=== PATIENT | female | born 1945 | race Caucasian/White ===

== ENCOUNTER 2021-03-27 08:31 | Emergency (ER) | payer OTHER ==
--- OUTSIDE RECORDS SUMMARY | 2021-03-27 08:35 | XMS REPORT | Continuity of Care Document ---
:1945 Author Organization [facility] t Address [address] [place] [address] Care Team Providers Name Role Phone Gil Gar MD Primary Care Physician Blanca Yu DO Attending Clinician Kenrick LOMELI, C. Attending Clinician MD KENRICK C. Attending Clinician Unavailable Teja LOMELI, P. Attending Clinician Cong LOMELI M. Attending Clinician KENRICK Admitting Clinician Unavailable MD KENRICK C. Admitting Clinician Unavailable Payers Payer Name Policy Type Policy Effective Date Expiration Date Sour ce Number UHC MEDICAREUHC [id number] 2020 [place] TRS/HEALTH[employer] 00:00:00 Methodis t [id number] 2020-Present Problems Condition Condition Condition Status Onset Resolution Last Treating Co mments Source Name Details Category Date Date Treatment Clinician Date Cerebrovas Cerebrovas Disease Active H mirta cular cular 4-05 Methodi accident accident 00:00: st (CVA) (CVA) 00 Closed Closed Disease Active 2016-10 [place] fracture fracture 0-19 Method i of neck of of neck of 00:00: st right right 00 femur femur 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[facility] 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 Kumar mccray (current) (current) 2-11 Meth katelynn use of use of 00:00: st selective selective 00 estrogen estrogen receptor receptor modulators modulators (serms) (serms) Allergies, Adverse Reactions, Alerts Allergy Allergy Status Severity Reaction(s) Onset Inactive Treating Comm ents Source Name Type Date Date Clinician Latex Propensi Active Other (See Unknown Kumar ston ty to Comments) 01-13 Methodi adverse 00:00: st reaction 00 s to drug Sulfa Propensi Active [place] (Sulfona ty to 11-21 Methodi mide adverse 00:00: st Antibiot reaction 00 ics) s to drug Social History Social Habit Start Date Stop Date Quantity Comments Source Tobacco use and 2021-01-13 2021-01-13 Never used Tre Brock ethodist exposure 00:00:00 00:00:00 Alcohol intake 2021-01-13 2021-01-13 Current [facility] thodist 00:00:00 00:00:00 non-drinker of alcohol (finding) Sex Ass[birth year] Tre Brock ethodist 00:00:00 00:00:00 Smoking Status Start Date Stop Date Source Never smoker [place] Qianais t Medications Ordered Filled Start Stop Current Ordering Indication Dosage Frequency Signature Comments Components Source Medication Medication Date Date Medication? Clinician (SIG) Name Name aspirin 2021- Yes 81mg QD Take 1 Tre (ECOTRIN) 01-17 tablet (81 Met hodi 81 MG 00:00: 23:59 mg total) st enteric 00 :00 by mouth coated daily. tablet clopidogreL 2020- No 75mg QD Take 1 Kumar mccray (PLAVIX) 75 01-17 tablet (75 M ethodi mg tablet 00:00: 23:59 mg total) st 00 :00 by mouth daily for 30 days. atorvastati 2020- No 5mg QD Take 5 mg Tre n (LIPITOR) 01-16 by mouth Met hodi 10 mg 15:12: 00:[address] tablet 02 :00 HYDROcodone Yes 1{tbl} Q.5D Take 1 [place] -acetaminop 01-16 tablet by Met brooke hen (NORCO) 15:12: mouth 2 st 5-325 mg 00 (two) per tablet times a day as needed for moderate pain. citalopram Yes 10mg QD Take 10 mg [place] (CeleXA) 10 4-08 by mouth Meth katelynn MG tablet 15:12: daily. Pt st 00 take 1 1/2 tab OD montelukast Yes 10mg QD Take 10 mg [place] (SINGULAIR) 4-08 by mouth Meth katelynn 10 mg 15:12: daily. st tablet 00 pantoprazol Yes 40mg QD Take 40 mg [place] e 4-08 by mouth Methodi (PROTONIX) 15:12: daily. st 40 MG EC 00 tablet QUEtiapine Yes 25mg QD Take 25 mg [place] (SEROquel) 4-08 by mouth Metho di 25 MG 15:12: nightly. st tablet 00 ergocalcife Yes 29450A Q7D Take [place] 4-08 50,000 Methodi (VITAMIN 15:12: Units by st D2) 50,000 00 mouth once unit a week. capsule tolterodine Yes 4mg QD Take 4 mg [place] (DETROL) 2 4-08 by mouth Metho di MG tablet 15:12: daily. st 00 ramelteon Yes 8mg QD Take 1 [place] (ROZEREM) 8 4-08 tablet (8 Met hodi mg tablet 00:00: mg total) st 00 by mouth nightly as needed for sleep. traMADoL Yes acute pain 50mg Q6H Take 1 [place] (ULTRAM) 50 4-08 tablet (50 Me thodi mg tablet 00:00: mg total) st 00 by mouth every 6 (six) hours as needed for moderate pain .acute pain. enoxaparin Yes deep vein 40mg QD Inject 0.4 [place] (LOVENOX) 4-08 thrombosis mL (40 mg Methodi 40 mg/0.4 00:00: prevention total) st mL syringe 00 under the skin daily .deep vein thrombosis prevention . clonIDINE Yes .1mg Q8H Take 1 [place] (CATAPRES) 4-08 tablet Methodi 0.1 MG 00:00: (0.[address] tablet 00 total) by mouth every 8 (eight) hours as needed for high blood pressure (SBP more than 160). Immunizations Ordered Immunization Filled Immunization Date Status Commen ts Source Name Name PFIZER COVID-19 MRNA 2020-12-11 Completed [place] VACC[facility] 00:00:00 [facility] PFIZER COVID-19 MRNA 2020-11-20 Completed [place] VACCIN[place] 00:00:00 [facility] FLUCELVAX QUAD PF 2017-08-04 Completed [place] 00:00:00 [facility] Vital Signs Vital Name Observation Time Observation Value Comments Source Systolic blood 2021-01-16 11:00:00 158 mm[Hg] [place] [facility] pressure Diastolic blood 2021-01-16 11:00:00 93 mm[Hg] Marisa on [facility] pressure Heart rate 2021-01-16 11:00:00 55 /min Tre Feliciano Body temperature 2021-01-16 11:00:00 36 Janette [place] [facility] Respiratory rate 2021-01-16 11:00:00 18 /min Bryson Feliciano Oxygen saturation in 2021-01-16 11:00:00 95 /min Tre Feliciano Arterial blood by Pulse oximetry Body weight 2021-01-16 04:58:54 60.238 kg Tre Feliciano BMI 2021-01-16 04:58:54 24.29 kg/m2 Tre Feliciano Body height 2021-01-13 04:05:35 157.5 cm Tre Feliciano Procedures Procedure Date / Time Performing Clinician Source Performed BASIC METABOLIC PANEL 2021-01-15 05:46:00 Claudio Beach Latrondria Martha HC COMPLETE BLD COUNT 2021-01-15 05:46:00 Claudio Beach W/AUTO DIFF Latrondria Martha ESTIMATED GFR 2021-01-15 05:46:00 Tre [place] Meth odist Latronnaima Martha TROPONIN 2021-01-13 18:29:00 Zoey Yuodist Blanca LACTIC ACID LEVEL, SEPSIS 2021-01-13 18:28:00 Zoey Yu - NOW AND REPEAT 2X EVERY Blanca 3 HOURS HEMOGLOBIN A1C 2021-01-13 13:58:00 Lázaro Garcia ethodist TROPONIN 2021-01-13 13:58:00 Zoey Yu Nm thodist Blanca LIPID PANEL 2021-01-13 13:58:00 Lázaro Garcia M ethodist TTE COMPLETE, WO CONTRAST, 2021-01-13 12:45:00 Lázaro Garcia Tre Feliciano W DOPPLER ([id number]) US CAROTID DUPLEX 2021-01-13 10:02:47 Lázaro GarciaAdiel [place] [facility] BILATERAL MRA HEAD WO CONTRAST 2021-01-13 07:33:16 Radha, Lázaro aldrich [facility] MRI BRAIN WO CONTRAST 2021-01-13 07:32:49 Lázaro Garcia Noman mccray [facility] MRA NECK WO CONTRAST 2021-01-13 07:32:27 Radha, Lázaro Feliciano XR HAND 3+ VW LEFT 2021-01-13 04:24:[address] HEAD WO CONTRAST 2021-01-13 02:30:36 Zoey Yu n [facility] Blanca CT CERVICAL SPINE WO 2021-01-13 02:30:22 Zoey Yu on [facility]regation CONTRAST Blanca URINE CULTURE 2021-01-13 01:57:00 Zoey Yu Nm thodist Blanca URINALYSIS SCREEN AND 2021-01-13 01:57:00 Zoey Yu MICROSCOPY, WITH REFLEX TO Blanca CULTURE XR HIPS BILATERAL AP 2021-01-13 01:15:19 Zoey Yu on [facility] LATERAL W AP PELVIS Blanca XR CHEST 1 VW PORTABLE 2021-01-13 01:15:04 Zoey Yu Blanca COVID-19 QUALITATIVE PCR 2021-01-13 00:58:00 Zoey Yu Blanca BLOOD CULTURE, AEROBIC & 2021-01-13 00:57:00 Zoey Yu ANAEROBIC Blanca BLOOD CULTURE, AEROBIC & 2021-01-13 00:46:00 Zoey Yu ANAEROBIC Blanca HC COMPLETE BLD COUNT 2021-01-13 00:46:00 Zoey Yu W/AUTO DIFF Blanca PROTHROMBIN TIME WITH INR 2021-01-13 00:46:00 Zoey Yu Blanca PARTIAL THROMBOPLASTIN 2021-01-13 00:46:00 Zoey Yu TIME (PTT) Blanca COMPREHENSIVE METABOLIC 2021-01-13 00:46:00 Zoey Yu PANEL Blanca LACTIC ACID LEVEL, SEPSIS 2021-01-13 00:46:00 Zoey Yu - NOW AND REPEAT 2X EVERY Blanca 3 HOURS LIPASE LEVEL 2021-01-13 00:46:00 Zoey Yu Me thodist Blanca CREATINE KINASE, TOTAL 2021-01-13 00:46:00 Zoey Yu (CPK) Blanca TROPONIN 2021-01-13 00:46:00 Zoey Yu Me thodist Blanca B NATRIURETIC PEPTIDE 2021-01-13 00:46:00 Zoey Yu Blanca ALCOHOL LEVEL, BLOOD 2021-01-13 00:46:00 Zoey Yu on [facility] Blanca ESTIMATED GFR 2021-01-13 00:46:00 Zoey Yu Me thodist Blanca ECG 12-LEAD 2021-01-13 00:38:45 Zoey Yu Me thodist Blanca ECG ED PRELIMINARY 2021-01-13 00:27:02 Zoey Yu INTERPRETATION Blanca ME CRITICAL CARE, E/M 2021-01-13 00:27:02 Zoey Yu 30-74 MINUTES Blanca MAMMO SELF REQUESTING 2020-08-29 15:38:33 Gil Gar SCREENING BILATERAL W ZHOU Plan of Care Planned Activity Planned Date Details Comments Source Future Scheduled 2021-05-11 INFLUENZA VACCINE Claudio levy [facility] Test 00:00:00 [code = INFLUENZA VACCINE] Future Scheduled 1963 Hepatitis C [place] Met hodist Test 00:00:00 screening (procedure) [code = 068167438] Encounters Start End Encounter Admission Attending Care Care Encounter Source Date/Time Date/Time Type Type Clinicians Facility Department ID 2021-01-13 2021-01-16 Inpatient KENRICK, [facility] [id number] [place] 00:00:00 00:00:[address] LATRICE [address] 2020-12-11 2020-12-11 Outpatient TEJA, [facility] [id number] [place] 00:00:00 00:00:00 ARLYN [address] 2020-11-20 2020-11-20 Outpatient [facility] [id number] [place] 00:00:00 00:00:[address] 2020-08-29 2020-08-29 Outpatient CONG, [facility] [id number] [place] 00:00:00 00:00:00 GIL [address] Results Test Description Test Time Test Comments Results Result Comments Source ECG 12 lead 2021-01-14 14:55:47 Test Item Value Reference Range Interpretation Comme nts Ventricular rate (test code = 253) 80 Atrial rate (test code = 255) 80 ME interval (test code = 266) 206 QRSD interval (test code = 260) 96 QT interval (test code = 264) 404 QTC interval (test code = 265) 465 P axis 1 (test code = 267) 55 QRS axis 1 (test code = 268) -52 T wave axis (test code = 270) 52 EKG impression (test code = 273) Sinus rhythm with premature atrial complexes with aberrant conduction-Left anterior fascicular block-Nonspecific ST abnormality-Abnormal ECG-In automated comparison with ECG of 29-JUL-2017 00:08,-aberrant conduction is now present-Nonspecific T wave abnormality now evident in Lateral leads- Tre MethodsteffenTransthoracic Echocardiogram Complete, (w Contrast, Strain and 3D if needed)2021-01-14 09:34:59 Test Item Value Reference Range Interpretation Comments Ao Root Diameter (test 2.97 cm code = 2228917464) AoV Area, Vmax (test 1.53 cm2 code = 9166097107) AoV Area, VTI (test 1.82 cm2 code = 8995055363) AoV Mean PG (test code 11.73 mmHg = 9180957171) AoV Peak PG (test code 13.09 mmHg = 6090734502) AoV Vmax (test code = 2.56 m/s 4467227968) AoV VTI (test code = 0.35 m 9834385346) IVS,d (test code = 1.37 cm 9270814456) IVS/LVPW,2D (test code 1.33 = 3734834911) Left Atrium Dimension 2.91 cm Anterior (test code = 0885203017) LV,d (test code = 4.28 cm 4508756179) LV EF,2D (test code = 74.43 % 3739670760) LV,s (test code = 2.72 cm 9466050642) LVOT area (test code = 2.06 cm2 5177287412) LVOT Diam,S (test code 1.62 cm = 6877471279) LVOT Vmax (test code = 1.35 m/s 5837271530) LVOT VTI (test code = 0.25 m 3318343660) LVPWD,d (test code = 1.03 cm 8187974663) PV Pk Grad (test code = 6.59 mmHg 5449665496) PV VMAX (test code = 1.28 m/s 3147889865) RVOT Vmax (test code = 0.84 m/s 8111616900) TR Vpeak (test code = 2.51 mm/s 8830332736) MV E A ratio (test code 0.66 = 7277015705) TR pk grad (test code = 18.11 mmHg 8011345468) MR Vmax (test code = 2.11 m/s 7467288467) MR peak grad (test code 16.98 mmHg = 1640694760) E wave decelartion time 189.03 msec (test code = 4902328642) MV Peak A Koby (test 1.24 m/s code = 4335912328) MV valve area p 1/2 4.01 cm2 method (test code = 1387167717) MV Peak E Koby (test 0.82 m/s code = 5843343243) MV stenosis pressure 54.82 ms 1/2 time (test code = 9099851654) LVOT stroke volume 0.52 cm3 (test code = 1300504720) AV LVOT peak gradient 7.24 mmHg (test code = 2369765865) Ascending aorta (test 3.44 cm code = 4801598156) Ao Root Diameter (test 2.97 cm code = 3183603736) LV SYS VOL (test code = 27.40 ml 0049173571) LV ROD VOL (test code 82.09 ml = 6519759934) LA area s A4C (test 18.07 cm2 code = 2529849721) LV SV Teich 2D (test 54.69 ml code = 2914727963) LV Vol s Teich PSAX 27.40 ml (test code = 1592459129) RVOT pk grad (test code 2.84 mmHg = 9295320379) AoV Vmn (test code = 1.61 7416110863) LV FS Teich 2D (test 36.53 code = 7953945238) MV AE ratio (test code 1.51 = 9778617509) LV FS Cube 2D (test 36.53 code = 5014289436) LVOT Vmn (test code = 0.98 8424753164) Aov area Vmn (test code 1.60 cm2 = 1729819867) LVOT mean grad (test 4.22 mmHg code = 3299658613) MAX Pred HR (test code 142.01 = 4888984581) 85 of MPHR (test code = 120.71 8276433715) Calc MPHR (test code = 142.01 bpm 6727409216) LV SV Cube 2D (test 58.30 ml code = 0473482023) LV vol d cube 2D (test 78.33 ml code = 6377455445) LV vol s cube 2D (test 20.03 ml code = 6846265934) MV Decel slope (test 4.32 m/s2 code = 2679776168) Pred Exer Dur R1 (test 5.96 code = 9902356846) Pred METS R1 (test code 4.56 = 0839306240) LA Vol MOD A4C (test 41.75 ml code = 4130626634) Velocity Ratio (V1/V2) 0.53 m/s (test code = 4689) EF (test code = 66.62 % 9884587758) E/A ratio (test code = 0.66 6750403557) LVOT VTI (CM) (test 25.00 cm code = 7723212608) GABRIEL (test code = GABRIEL) Left ventricular systolic function is normal. Left Ventricular ejection fraction is 55 - 60%. Tre Alfaro carotid [id number] 10:05:33Hm Interface, Radiology Results 01/13/2021 10:08 AM CDTFormatting of this note might be di fferent from the original.Examination: US CAROTID DUPLEX BILATERALCLINICAL HISTORY: strokeTECHNIQUE:Examination includes full duplex Doppler scan (real- time B mode grayscale, Doppler spectral analysis, Doppler color flow imaging) of the common carotid, internal carotid, external carotid, and vertebral arteries. Velocity parameters are based upon studies using distal internal carotid artery diameter as a denominator for stenosis calculation.COMPARISON: None.IMPRESSION:1.Small volume of calcified plaque within the carotid arteries bilaterally. No hemodynamically significant stenosis within either internal carotid artery by NASCET criteria, with peak systolic velocities in the right and left internal carotid arteries measuring 50 cm/s and 43 cm/s, respectively. The peak systolic velocities within the right and left common carotid arteries measure 66 cm/s and 85 cm/s, respectively. Right ICA/CCA ratio 0.8; left 0.5. End diastolic velocities are normal.2.The right and left vertebral arteries are patent and demonstrate normal antegrade flow.[facility]-[id number] [facility] Brain Wo [id number] 07:49:41Hm Interface, Radiology Results 01/13/2021 7:52 AM CDT EXAMINATION: MRI BRAIN WO CONTRASTCLINICAL HISTORY: StrokeCOMPARISON: Head CT on 01/13/2021.TECHNIQUE: Standard noncontrast brain MRI.FINDINGS:The study is limited by patientmotion.There is acute-subacute right MCA territorial infarction most confluent involving right posterior temporal-lateral occipital lobar region and scattered areas involving right parietal cortex, subcortical and deep white matter including right posterior james radiata. No evidence of hemorrhagic transformation. Local mass effect with sulcal effacement and partial effacement of temporal horn of right lateral ventricle. No significant midline shift or brain herniation.Superimposed mild patchy areas of T2 prolongation in mostly bilateral frontoparietal periventricular, deep, and to lesser degree cody bcortical white matter are nonspecific but probably from chronic ischemic small vessel disease. No hydrocephalus, ventricular entrapment, or extra-axial fluid collection.Visualized paranasal sinuses and mastoid air cells are clear. Bilateral intraocular lens implants are noted. Bones and soft tissues are unremarkable.IMPRESSION:Acute-subacute right MCA territorial infarction involving mostly right posterior temporal-lateral occipital lobar region and to lesser degree right parietal lobar region. No evidence of hemorrhagic transformation.[id number] MethodistMRA Head Wo [id number] 07:48:08Hm Interface, Radiology Results 01/13/2021 7:51 AM CDT EXAMINATION: MRA HEAD WO CONTRASTCLINICAL HISTORY: StrokeCOMPARISON: None.IMPRESSION:3-D reconstructions were processed off-line.Motion artifact severely limits the evaluation.Likely occlusion of the dominant posterior branch of the right MCA just distal to the right MCA bifurcation.There is flow-related enhancement in bilateral internal carotid arteries, proximal M1 segments, A1 segments, intracranial vertebral arteries, basilar artery and P1 segments.Poor evaluation ofthe more distal intracranial vasculature. Consider further evaluation with CT angiogram.[facility]-WPHYRRSHouston MethodistMRA Neck Wo [id number] 07:43:12Hm Interface, Radiology Results 01/13/2021 7:46 AM CDT EXAMINATION: MRA NECK WO CONTRASTCLINICAL HISTORY: StrokeCOMPARISON: None.IMPRESSION:3-D reconstructions are processed off-line.No narrowing by NASCET criteria of the cervical internal carotid arteries.No hemodynamically significant narrowing of the distal common carotid arteries or visualized extracranial vertebral arteries.[facility]-WPHYRRSHouston [id number] (COVID-19) RNA [Presence] in Respiratory specimen by SIGIFREDO with probe [id number] 06:18:17 Test Item Value Reference Range Interpretation Comments SARS-CoV-2 (COVID-19) RNA Not detected Not-Detected [Presence] in Respiratory specimen by SIGIFREDO with probe detection (test code = 26846-9) XR Hand 3+ Vw [id number] 04:26:05Hm Interface, Radiology Results 01/13/2021 4:29 AM CDT EXAMINATION: XR HAND 3 VW LEFTCLINICAL HISTORY: fallCOMPARISON: None.IMPRESSION:Osteopenia of the visualized osseous structures.No acute fractures or dislocations.The visualized joint spaces are anatomic. Advanced degenerative change of the articulation of the first metacarpal and trapezium.No soft tissue abnormalities.[id number]irm[facility] MethodistCT Head Wo Contrast 2021-01-13 02:37:41Hm Interface, Radiology Results 01/13/2021 2:40 AM CDT EXAMINATION: CT HEAD WO CONTRASTCLINICAL HISTORY: AMS fallCOMPARISON: NoneTECHNIQUE: Noncontrast CT of the brain was performed from the skull base to the vertex. Both soft tissue and bone reconstruction algorithms are interpreted.CT imaging was performed with iterative reconstruction techniques and/or automated exposure control to reduce radiation dose.FINDINGS:There is anacute infarct in the right MCA territory involving the posterior division. The posterior right temporal and right parietal lobes are involved. There is mild local mass effect with some narrowing of theright lateral ventricle atrium. No hemorrhage is seen.No hyperdense vessel is seen.Mild lucency is noted in the cerebral white matter is consistent chronic small vessel ischemic change. Involutional changes of the brain are present.Intracranial atherosclerotic calcifications are present. No air-fluid level is seen in the visualized portions of the paranasal sinuses. Mastoid air cells are clear.IMPRESSION:Right MCA posterior division territory infarct involving the posterior right temporal lobe and right parietal lobe. There is mild local mass effect. No hemorrhage is seen.Findings were discussed with Dr. Yu at 2:35 AM. He verbalized understanding.[facility]-[id number] MethodistCT Cervical Spine Wo [id number] 02:33:33Hm Interface, Radiology Results 01/13/2021 2:36 AM CDT EXAMINATION: CT CERVICAL SPINE WO CONTRASTCLINICAL HISTORY: fallCOMPARISON: NoneTECHNIQUE: Axial noncontrast enhanced images of the cervical spine were obtained with coronal and sagittal reconstructed algorithms. CT imaging was performed with iterative reconstruction techniques and/or automated exposure control to reduce radiation dose.FINDINGS:No fracture or acute subluxation is identified.The paraspinous soft tissues are unremarkable.C2-3: Moderate bilateral facet arthrosis. Mild disc degenerative changes.C3-4: Prominent disc degenerative changes. Grade 1 retrolisthesis. Mild bilateral facet arthrosis. Moderate canal stenosis. Moderate bilateral foraminal stenosis.C4-5: Mild disc degenerative changes. Moderate left and mild right facet arthrosis. Moderate left and mild right foraminal stenosis.C5-6: Prominent disc degenerative changes. Grade 1 retrolisthesis. Moderate bilateral foraminal stenosis.C6-7: Prominent disc degenerative changes. Moderate bilateral foraminal stenosis.C7-T1: Mild bilateral facet arthrosis.No incidental thyroid lesion is identified.IMPRESSION: No acute abnormality of the cervical spine is identified.Prominent cervical spondylosis as discussed.[facility]-[id number] MethodistUrine [id number] 02:10:10 Test Item Value Reference Range Interpretation Comments Urine culture (test SEE COMMENT Bacteriu rob screen code = [id number]) negative. [place] MethodistXR Chest 1 Vw [id number] 01:32:42Hm Interface, Radiology Results 01/13/2021 1:35 AM CDT EXAMINATION: XR CHEST 1 VW PORTABLECLINICAL HISTORY: SOBCOMPARISON: 07/29/2017.IMPRESSION:The lungs are clear. No pleural effusion or pneumothorax. Cardiac silhouette appearsprominent due in part to technique. Thoracic aorta atherosclerotic calcifications.No acute osseous ab normalities.[facility]-[id number] MethodistXR Hips Bilateral Ap Lateral W Ap [id number] 01:31:08Hm Interface, Radiology Results 01/13/2021 1:34 AM CDT XR HIPS BILATERAL AP LATERAL W AP PELVISCLINICAL INDICATION: fallCOMPARISON: 07/29/2017IMPRESSION:Bones are demineralized noting interval pinning of previous subcapital right femoral fracture. No acute fracture of either hip is identified and there is no dislocation. Pelvicring appears intact. Periarticular soft tissues are unremarkable.*[facility]-WPHYMDLChugiak MethodistEC ED Preliminary Interpretation - Not an [id number] 00:27:02 Test Item Value Reference Range Interpretation Comments GABRIEL (test code = GABRIEL) Zoey Yu DO 01/13/2021 2:49 AMECG ED Preliminary Interpretation - Not an OrderPerformed by: Zoey Yu DOAuthorized by: Zoey Yu DO ECG reviewed by ED Physician in the absence of a wildlife conservation professor: yes Interpretation: Interpretation: abnormal Rate: ECG rate: 80 ECG rate assessment: normal Rhythm: Rhythm: sinus rhythm QRS: QRS axis: LeftComments: Sinus rhythm with some premature atrial complexes and nonspecific ST abnormality but no STEMI Lab Interpretation Abnormal (test code = 00635-3) [facility]2021-04-05 00:27:02Zoey Yu DO 01/13/2021 2:49 AMCritical CarePerformed by: Zoey Yu DOAuthorized by: Zoey Yu DO Critical care provider statement: Critical care time (minutes): 36 Critical care time was exclusive of: Separately billable procedures and treating other patients and teaching time Critical care was necessary to treat or prevent imminent or life- threatening deterioration of the following conditions: THERMODYNAMIC PHYSICIST failure or compromise Critical care was time spent personally by me on the following activities: Ordering and performing treatments and interventions, ordering and review of laboratory studies, ordering and review of radiographic studies, pulse oximetry, re-evaluation of patient's condition, review of old charts, obtaining history from patient or surrogate, examination of patient, evaluation of patient's response to treatment, discussions with consultants and development of treatment plan with patient or surrogateChugiak CongregationARROWHEAD [facility] SELF REQUESTING SCREENING BILATERAL W [id number] 17:27:13There is no mammographic evidence of malignancy. Continued monitoring of the clinical examination and annual mammography in 1 year is recommended. BI-RADS Category 2:Benign Finding(s) Workstation Name: [id number] A NEGATIVE X-RAY REPORT SHOULD NOT DELAY BIOPSY IF A DOMINANT OR CLINICALLY SUSPICIOUS MASS IS PRESENT. NOT ALL CANCERS ARE IDENTIFIED BY X-RAY. Interface, Radiology Results Incoming- 08/29/2020 5:27 PM CST PROCEDURE:Bilateral MAMMO SCREENING BILATERAL W ZHOU HISTORY:Patient is 75 years old and is seen for screening. Thepatient has a history of right biopsy. The patient has a history of right breast cancer status post lumpectomy and radiation therapy in 2009. FILMS COMPARED:The present examination has been compared toprior imaging studies dated 12/19/2015, 12/23/2016 and 09/30/2018. MAMMOGRAM FINDINGS:The breasts are almost entirely fat. A postsurgical scar with associated fat necrosis calcification and biopsy clipis noted in the right upper-outer quadrant at posterior depth. Benign oil cysts also visualized in the right upper-outer quadrant. No suspicious masses, calcifications or other abnormalities are seen. IMPRESSION:There is no mammographic evidence of malignancy. Continued monitoring of the clinical examination and annual mammography in 1 year is recommended. BI-RADS Category 2:Benign Finding(s) Workstation Name: [id number] A NEGATIVE X-RAY REPORT SHOULD NOT DELAY BIOPSY IF A DOMINANT OR CLINICALLYSUSPICIOUS MASS IS PRESENT. NOT ALL CANCERS ARE IDENTIFIED BY X-RAY.Tre Feliciano
[2021-03-27 09:11] LABS: Absolute Lymphocytes (CBC) 1.5 K/uL (0.7-4.9); Basophils % 0.4 % (0-1.3); Hematocrit 38.8 % (36.0-45.0); Lymphocytes % 15.7 % (15.3-44.8); MPV 7.8 fL (7.6-11.3); RBC Red Blood Cell Count 4.42 M/uL (3.86-4.86)
[2021-03-27 09:15] LABS: Protime INR 1.31
[2021-03-27] MEDS ORDERED: NA CHLORIDE 0.9% 2,000 ML ONE (09:20)
[2021-03-27 09:28] LABS: ALT/SGPT 347 U/L (12-78); AST/SGOT 129 U/L (15-37); Albumin 2.3 g/dL (3.4-5.0); Alkaline Phosphatase 327 U/L (45-117); Amylase 11 U/L (25-115); BUN Blood Urea Nitrogen 22 mg/dL (7-18); Bicarbonate 29 mmol/L (21-32); Bilirubin Direct 0.2 mg/dL (0-0.2); Bilirubin Total 0.5 mg/dL (0.2-1.0); Creatine Phosphokinase 60 U/L (26-192); Glucose Level 95 mg/dL (74-106); Protein, Total 6.1 g/dL (6.4-8.2); Sodium Level 142 mmol/L (136-145); Troponin (Emerg Dept Use Only) < 0.02 ng/mL (0.0-0.045)
[2021-03-27 09:29] LABS: CKMB Creatine Kinase MB < 1.0 ng/mL (1.0-3.6); Lipase < 10 U/L (73-393)
[2021-03-27 09:30] LABS: Potassium 2.8 mmol/L (3.5-5.1)
--- NOTE | 2021-03-27 09:40 | RAD REPORT ---
EXAM DESCRIPTION: RAD - Chest Single View - 03/27/2021 8:55 am CLINICAL HISTORY: weakness, shortness of breath COMPARISON: None TECHNIQUE: AP portable chest image was obtained 03/27/2021 8:55 am . FINDINGS: No focal mass or consolidation. No failure or volume overload suspected. Mild prominence o f the interstitial pattern believed be baseline. Heart and vasculature are normal. No measurable pleural effusion and no pneumothorax. No acute bony abnormality seen. No acute aortic findings suspected. IMPRESSION: No acute cardiopulmonary process.
[2021-03-27] MEDS ORDERED: POTASSIUM CL SA 10 MEQ TAB PO ONE (10:37)
[2021-03-27] MEDS ORDERED: NA CHLORIDE 0.9% 250 ML ONE (10:37)
[2021-03-27] MEDS ORDERED: KCL 20 MEQ/100 mL IVPB 20 MEQ/100 ML BAG IV ONE (10:38)
--- NOTE | 2021-03-27 12:29 | RAD REPORT ---
EXAM DESCRIPTION: CT - Abdomen Pelvis W Contrast - 03/27/2021 11:59 am CLINICAL HISTORY: ABD PAIN COMPARISON: No comparisons TECHNIQUE: Biphasic, helical CT imaging of the abdomen and pelvis was performed following 100 ml non -ionic IV contrast. No oral contrast administered. All CT scans are performed using dose optimization technique as appropriate and may include automated exposure control or mA/KV adjustment according to patient size. FINDINGS: Fibrotic stranding in each lung base. Cardiomegaly without pericardial effusion seen. Dist al thoracic aorta is tortuous. No focal liver parenchymal lesion identified. No splenomegaly or focal splenic finding. There is fat infiltration into the pancreas. Cholecystectomy clips are present. There is significant intrahepatic and extrahepatic biliary tree dilatation greater than seen for simple reservoir affect. Duct stones c an be occult. A small mass at the sphincter is possible. No gross mass lesions seen. Symmetric renal function is seen with no hydronephrosis or suspicious renal mass. No pyelonephritis o r acute parenchymal process. No bladder abnormalities. No adrenal abnormalities. No acute stomach or small bowel finding. Appendicitis is not suspected. Patient has circumferential w all thickening and edema from the tip of the cecum to the distal rectum. There is stranding in the ad jacent fat. A focal mass lesion is not seen. No free air or pneumatosis. No abnormal free fluid citlali ection. No hernia, mass or bulky lymphadenopathy. No suspicious bony findings. Disc and bone degenerative changes are present. No clearly pathologic willian ne process. Arterial tree calcifications are present. IMPRESSION: Prominent pancolitis pattern with no obstructing mass. No free air or pneumatosis. Intrahepatic and extrahepatic biliary tree dilatation in a post cholecystectomy patient. Dilatation i s greater than typically seen for a post cholecystectomy patient. Duct stones and small masses near t he sphincter can be occult. Correlation is needed with any biliary obstructive findings.
--- NOTE | 2021-03-27 12:45 | ER ---
Nurse's Notes [facility] Name: Yanely Ivan Age: 76 yrs Sex: Female : 1945 Arrival Date: 03/27/2021 Time: 08:34 Bed 8 Private MD: Diagnosis: Abdominal and pelvic pain;Pancolitis;Hypotension Presentation: 03/27 08:20 Chief complaint: EMS states: pt from [facility] [place], today they took her vs and noted she had low tw2 blood pressure, she doesn't have any s\\T\\s of hypotension but they say they called their doctor and he suggested she come to the ER. her got 88/62, she was lying down, normally doesn't walk from a previous CVS, LEFT sided weakness. Coronavirus screen: At this time, the client does not indicate any symptoms associated with coronavirus-19. Ebola Screen: Patient denies travel to an Ebola-affected area in the 21 days before illness onset. Initial Sepsis Screen: Does the patient meet any 2 criteria? No. Patient's initial sepsis screen is negative. Does the patient have a suspected source of infection? No. Patient's initial sepsis screen is negative. Risk Assessment: Do you want to hurt yourself or someone else? Patient reports no desire to harm self or others. Note provider notified of low blood pressure. Onset of symptoms was March 27, 2021. 08:20 Method Of Arrival: EMS: [facility] tw2 08:20 Acuity: ANGEL 2 tw2 Triage Assessment: 08:20 General: Appears in no apparent distress. slender, Behavior is calm, cooperative, tw2 appropriate for age. Pain: Denies pain. EENT: No signs and/or symptoms were reported regarding the EENT system. Neuro: Level of Consciousness is awake, alert, obeys commands, Oriented to person, place, time, situation. Cardiovascular: Patient's skin is warm and dry. Respiratory: Airway is patent Respiratory effort is even, unlabored, Respiratory pattern is regular, symmetrical. GI: No signs and/or symptoms were reported involving the gastrointestinal system. Abdomen is flat. : No signs and/or symptoms were reported regarding the genitourinary system. Derm: No signs and/or symptoms reported regarding the dermatologic system. Musculoskeletal: Range of motion: limited in left shoulder. Historical: - Allergies: 09:17 Sulfa (Sulfonamide Antibiotics); tw2 09: Latex, Natural Rubber; tw2 - Home Meds: : amlodipine 5 mg tab 1 tab once daily [Active]; B complex-vitamin C-folic acid 400 mcg tw2 oral tab [Active]; citalopram 10 mg tab 1 tab once daily [Active]; Dulcolax (bisacodyl) 10 mg Rectal supp 1 suppository as needed [Active]; ergocalciferol (vitamin D2) 50,000 unit oral cap 1 cap once wkly [Active]; ferrous sulfate 325 mg (65 mg iron) Oral tab [Active]; Flonase 50 mcg/actuation Nasal spsn 1 spray once daily [Active]; gabapentin 300 mg oral cap 1 cap once at bedtime [Active]; ipratropium-albuterol 0.5 mg-3 mg(2.5 mg base)/3 mL Inhl nebu 3 mL 4 times per day [Active]; Maalox Plus Extra Strength Oral [Active]; melatonin 3 mg Oral tab nightly [Active]; Miralax 17 gram Oral pwpk 1 packet once daily [Active]; montelukast 10 mg oral tab 1 tab once daily [Active]; nystatin 100,000 unit/gram Topical oint 2 times per day [Active]; Plavix 75 mg Oral tab 1 tab once daily [Active]; thiamine HCl (vitamin B1) 100 mg Oral tab as needed [Active]; tolterodine 2 mg oral cp24 1 cap once daily [Active]; vancomycin 250 mg oral cap 1 cap every 6 hours [Active]; ceftriaxone miscellaneous powd [Active]; Colace 100 mg oral cap 1 cap once daily [Active]; - PMHx: CVA; C-diff 02/27/21; Overactive bladder; weakness, generalized; hemiplegia; left sided tw2 weakness; Hypertension; Atrial Fib; - PSHx: Hysterectomy; Cholecystectomy; Bypass; tw2 - Immunization history:: Adult Immunizations. - Social history:: Smoking status: . Screenin:22 Abuse screen: Denies threats or abuse. Nutritional screening: No deficits noted. tw2 Tuberculosis screening: No symptoms or risk factors identified. Fall Risk Secondary diagnosis (15 points) impaired mobility, CVA. Assessment: 09:22 Reassessment: see triage assessment. tw2 09:23 Reassessment: Patient appears in no apparent distress at this time. No changes from tw2 previously documented assessment. Patient and/or family updated on plan of care and expected duration. Pain level reassessed. Patient is alert, oriented x 3, equal unlabored respirations, skin warm/dry/pink. 10:30 Reassessment: Patient appears in no apparent distress at this time. Patient and/or ca1 family updated on plan of care and expected duration. Pain level reassessed. Patient is alert, oriented x 3, equal unlabored respirations, skin warm/dry/pink. 11:29 Reassessment: Patient appears in no apparent distress at this time. Patient and/or ca1 family updated on plan of care and expected duration. Pain level reassessed. Patient is alert, oriented x 3, equal unlabored respirations, skin warm/dry/pink. 12:04 Reassessment: Patient appears in no apparent distress at this time. GI: Stools are ca1 reported to be loose, Notified provider. 13:07 Reassessment: Patient appears in no apparent distress at this time. No changes from ca1 previously documented assessment. Patient and/or family updated on plan of care and expected duration. Pain level reassessed. Patient is alert, oriented x 3, equal unlabored respirations, skin warm/dry/pink. 14:08 Reassessment: Patient appears in no apparent distress at this time. No changes from ca1 previously documented assessment. Patient and/or family updated on plan of care and expected duration. Pain level reassessed. Patient is alert, oriented x 3, equal unlabored respirations, skin warm/dry/pink. 14:43 Reassessment: Patient appears in no apparent distress at this time. Patient is alert, ca1 oriented x 3, equal unlabored respirations, skin warm/dry/pink. Reassessment: Called for report. Transfer center states, "the nurse won't take report until room is cleaned". Explained how far we are from them, same answer. 15:31 Reassessment: Patient appears in no apparent distress at this time. Patient and/or ca1 family updated on plan of care and expected duration. Pain level reassessed. Patient is alert, oriented x 3, equal unlabored respirations, skin warm/dry/pink. 15:37 Reassessment: Attempted to call report. Transfer center says he will call back in 5 ca1 minutes. 15:55 Reassessment: Called report to Cherelle Coy RN. ca1 16:28 Reassessment: Patient appears in no apparent distress at this time. Patient is alert, ca1 oriented x 3, equal unlabored respirations, skin warm/dry/pink. 16:37 Reassessment: Belongings sent with pt. ca1 Vital Signs: 08:20 BP 81 / 61; Pulse 78; Resp 17; Temp 97.9(TE); Pulse Ox 99% on R/A; Weight 56.7 kg (R); tw2 09:23 BP 94 / 67; Pulse 75; Resp 17; Pulse Ox 95% on R/A; tw2 10:12 BP 102 / 70; Pulse 81; Resp 15 S; Pulse Ox 98% on R/A; ca1 11:15 BP 92 / 57; Pulse 83; Resp 18; Pulse Ox 97% on R/A; ca1 12:05 BP 105 / 78; Pulse 86; Resp 14 S; Pulse Ox 98% on R/A; ca1 13:07 BP 99 / 74; Pulse 85; Resp 16 S; Pulse Ox 98% on R/A; ca1 14:08 BP 95 / 65; Pulse 81; Resp 17 S; Pulse Ox 94% on R/A; ca1 15:07 BP 96 / 64; Pulse 79; Resp 15 S; Pulse Ox 99% on R/A; ca1 16:08 BP 92 / 60; Pulse 77; Resp 16; Pulse Ox 94% on R/A; ca1 ED Course: 08:23 Bed in low position. Call light in reach. Side rails up X2. 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 Pulse tw2 ox on. NIBP on. Warm blanket given. 08:34 Patient arrived in ED. bd 08:34 Chilo Nava MD is Attending Physician. kdr 08:36 No provider procedures requiring assistance completed. tw2 08:45 Missed attempt(s): 22 gauge in left antecubital area. Bleeding controlled, band aid tw2 applied, catheter tip intact. Missed attempt(s): 22 gauge in left forearm. Bleeding controlled, band aid applied, catheter tip intact. Missed attempt(s): 22 gauge in left wrist. Bleeding controlled, band aid applied, catheter tip intact. 08:45 Arm band placed on. tw2 08:46 Yulissa Servin RN is Primary Nurse. tw2 08:50 Inserted saline lock: 20 gauge in right forearm, using aseptic technique. Blood bp collected. 08:55 Chest Single View XRAY In Process Unspecified. EDMS 08:58 Triage completed. tw2 10:00 Report given to DENNIS Maciel. tw2 11:59 CT Abd/Pelvis - IV Contrast Only In Process Unspecified. EDMS 12:48 initiated transfer to [facility]. bd 14:08 Janell Fraser RN is Primary Nurse. ca1 14:29 pt accepted in transfer to [facility] by dr Vane Loera, admin approval given by sabina Jenkins. pt going to room 2114. 15:31 Patient transferred, IV remains in place. ca1 Administered Medications: 09:04 Drug: NS 0.9% (30 ml/kg) 30 ml/kg Route: IV; Rate: bolus; Site: right forearm; tw2 10:30 Follow up: Response: No adverse reaction; IV Status: Completed infusion; IV Intake: ca1 1700ml 10:13 Drug: Potassium Chloride 40 mEq Route: PO; ca1 11:00 Follow up: Response: No adverse reaction ca1 10:15 Drug: Potassium Chloride 20 mEq Route: IV; Rate: calculated rate; Site: right forearm; ca1 12:15 Follow up: Response: No adverse reaction; IV Status: Completed infusion; IV Intake: ca1 100ml 12:48 Drug: Zofran (Ondansetron) 4 mg Route: IVP; Site: right forearm; ca1 14:39 Follow up: Response: No adverse reaction; Nausea is decreased ca1 12:49 Drug: Cipro (ciprofloxacin) 500 mg Route: PO; ca1 14:39 Follow up: Response: No adverse reaction ca1 12:50 Drug: Flagyl (metroNIDAZOLE) 500 mg Route: PO; ca1 14:39 Follow up: Response: No adverse reaction ca1 Intake: 10:30 IV: 1700ml; Total: 1700ml. ca1 12:15 IV: 100ml; Total: 1800ml. ca1 Outcome: 12:43 ER care complete, transfer ordered by . kdr 16:28 Transferred by ground EMS to [facility], Transfer form completed. ca1 X-rays sent w/ patient. 16:28 Condition: stable 16:28 Instructed on the need for transfer. 16:38 Patient left the ED. ca1 Signatures: Dispatcher [employer] EDMS Radha Maldonado Kevin, MD MD kdr Yulissa Servin RN RN tw2 Refugio Rain RN RN bp Janell Fraser RN RN ca1 Corrections: (The following items were deleted from the chart) 12:24 12:04 GI: Stools are reported to be loose, ca1 ca1 16:37 16:28 Transferred by ground EMS to [facility], Transfer form ca1 completed. X-rays sent w/ patient. ca1
--- NOTE | 2021-03-27 12:45 | EDPHYS ---
Physician Documentation [facility] Name: Yanely Ivan Age: 76 yrs Sex: Female : 1945 Arrival Date: 03/27/2021 Time: 08:34 Bed 8 Private MD: ED Physician Chilo Nava HPI: 03/27 18:16 This 76 yrs old Female presents to ER via EMS with complaints of low blood kdr pressure \T\ abdominal pain. 18:16 The patient was noted to have low BP at the alf but on exam, the patient also kdr had mild diffuse lower abdominal pain. Onset: The symptoms/episode began/occurred acutely, suddenly. Severity of symptoms: At their worst the symptoms were mild in the emergency department the symptoms are unchanged. The patient has not experienced similar symptoms in the past. The patient has not recently seen a physician. Historical: - Allergies: 09:17 Sulfa (Sulfonamide Antibiotics); tw2 09:17 Latex, Natural Rubber; tw2 - Home Meds: 09:17 amlodipine 5 mg tab 1 tab once daily [Active]; B complex-vitamin C-folic acid 400 mcg tw2 oral tab [Active]; citalopram 10 mg tab 1 tab once daily [Active]; Dulcolax (bisacodyl) 10 mg Rectal supp 1 suppository as needed [Active]; ergocalciferol (vitamin D2) 50,000 unit oral cap 1 cap once wkly [Active]; ferrous sulfate 325 mg (65 mg iron) Oral tab [Active]; Flonase 50 mcg/actuation Nasal spsn 1 spray once daily [Active]; gabapentin 300 mg oral cap 1 cap once at bedtime [Active]; ipratropium-albuterol 0.5 mg-3 mg(2.5 mg base)/3 mL Inhl nebu 3 mL 4 times per day [Active]; Maalox Plus Extra Strength Oral [Active]; melatonin 3 mg Oral tab nightly [Active]; Miralax 17 gram Oral pwpk 1 packet once daily [Active]; montelukast 10 mg oral tab 1 tab once daily [Active]; nystatin 100,000 unit/gram Topical oint 2 times per day [Active]; Plavix 75 mg Oral tab 1 tab once daily [Active]; thiamine HCl (vitamin B1) 100 mg Oral tab as needed [Active]; tolterodine 2 mg oral cp24 1 cap once daily [Active]; vancomycin 250 mg oral cap 1 cap every 6 hours [Active]; ceftriaxone miscellaneous powd [Active]; Colace 100 mg oral cap 1 cap once daily [Active]; - PMHx: 09:17 CVA; C-diff 02/27/21; Overactive bladder; weakness, generalized; hemiplegia; left sided tw2 weakness; Hypertension; Atrial Fib; - PSHx: :17 Hysterectomy; Cholecystectomy; Bypass; tw2 - Immunization history:: Adult Immunizations. - Social history:: Smoking status: . ROS: 18:16 Constitutional: Negative for fever, chills, and weight loss, Eyes: Negative for injury, kdr pain, redness, and discharge, Neck: Negative for injury, pain, and swelling, Cardiovascular: Negative for chest pain, palpitations, and edema, Respiratory: Negative for shortness of breath, cough, wheezing, and pleuritic chest pain, Back: Negative for injury and pain, : Negative for injury, bleeding, discharge, and swelling, MS/Extremity: Negative for injury and deformity, Skin: Negative for injury, rash, and discoloration, Psych: Negative for depression, anxiety, suicide ideation, homicidal ideation, and hallucinations, Allergy/Immunology: Negative for hives, rash, and allergies, Endocrine: Negative for neck swelling, polydipsia, polyuria, polyphagia, and marked weight changes, Hematologic/Lymphatic: Negative for swollen nodes, abnormal bleeding, and unusual bruising. 18:16 Abdomen/GI: Positive for abdominal pain, nausea, Negative for black/tarry stool, rectal pain, rectal bleeding, bowel incontinence. 18:16 MS/extremity: Positive for decreased range of motion, deformity, erythema, Negative for 18:16 Neuro: Positive for weakness. Exam: 18:16 Constitutional: This is a well developed, well nourished patient who is awake, alert, kdr and in no acute distress. Head/Face: Normocephalic, atraumatic. Eyes: Pupils equal round and reactive to light, extra-ocular motions intact. Lids and lashes normal. Conjunctiva and sclera are non-icteric and not injected. Cornea within normal limits. Periorbital areas with no swelling, redness, or edema. Neck: Trachea midline, no thyromegaly or masses palpated, and no cervical lymphadenopathy. Supple, full range of motion without nuchal rigidity, or vertebral point tenderness. No Meningismus. Chest/axilla: Normal chest wall appearance and motion. Nontender with no deformity. No lesions are appreciated. Cardiovascular: Regular rate and rhythm with a normal S1 and S2. No gallops, murmurs, or rubs. Normal PMI, no JVD. No pulse deficits. Respiratory: Lungs have equal breath sounds bilaterally, clear to auscultation and percussion. No rales, rhonchi or wheezes noted. No increased work of breathing, no retractions or nasal flaring. Back: No spinal tenderness. No costovertebral tenderness. Full range of motion. Skin: Warm, dry with normal turgor. Normal color with no rashes, no lesions, and no evidence of cellulitis. MS/ Extremity: Pulses equal, no cyanosis. Neurovascular intact. Full, normal range of motion. Psych: Awake, alert, with orientation to person, place and time. Behavior, mood, and affect are within normal limits. 18:16 Abdomen/GI: Inspection: abdomen appears normal, Bowel sounds: active, Palpation: soft, mild abdominal tenderness, in the right lower quadrant and left lower quadrant. Vital Signs: 08:20 BP 81 / 61; Pulse 78; Resp 17; Temp 97.9(TE); Pulse Ox 99% on R/A; Weight 56.7 kg (R); tw2 09:23 BP 94 / 67; Pulse 75; Resp 17; Pulse Ox 95% on R/A; tw2 10:12 BP 102 / 70; Pulse 81; Resp 15 S; Pulse Ox 98% on R/A; ca1 11:15 BP 92 / 57; Pulse 83; Resp 18; Pulse Ox 97% on R/A; ca1 12:05 BP 105 / 78; Pulse 86; Resp 14 S; Pulse Ox 98% on R/A; ca1 13:07 BP 99 / 74; Pulse 85; Resp 16 S; Pulse Ox 98% on R/A; ca1 14:08 BP 95 / 65; Pulse 81; Resp 17 S; Pulse Ox 94% on R/A; ca1 15:07 BP 96 / 64; Pulse 79; Resp 15 S; Pulse Ox 99% on R/A; ca1 16:08 BP 92 / 60; Pulse 77; Resp 16; Pulse Ox 94% on R/A; ca1 MDM: 11:40 Data reviewed: vital signs, nurses notes, lab test result(s), radiologic studies. kdr Counseling: I had a detailed discussion with the patient and/or guardian regarding: the historical points, exam findings, and any diagnostic results supporting the discharge/admit diagnosis, lab results, radiology results. ED course: The patient is still c/o abdominal pain. Will get CT. 12:43 Patient medically screened. kdr 03/27 08:35 Order name: Amylase, Serum; Complete Time: 10:50 kdr 03/27 08:35 Order name: Basic Metabolic Panel; Complete Time: 10:50 kdr 03/27 08:35 Order name: Blood Culture Adult (2) kdr 03/27 08:35 Order name: CBC with Diff; Complete Time: 10:50 kdr 03/27 08:35 Order name: Ckmb; Complete Time: 10:50 kdr 03/27 08:35 Order name: CPK; Complete Time: 10:50 kdr 03/27 08:35 Order name: Lactate; Complete Time: 10:50 kdr 03/27 08:35 Order name: LFT's; Complete Time: 10:50 kdr 03/27 08:35 Order name: Lipase; Complete Time: 10:50 kdr 03/27 08:35 Order name: Procalcitonin; Complete Time: 10:50 kdr 03/27 08:35 Order name: Protime (+inr); Complete Time: 10:50 kdr 03/27 08:35 Order name: Ptt, Activated; Complete Time: 10:50 kdr 03/27 08:35 Order name: Troponin (emerg Dept Use Only); Complete Time: 10:50 kdr 03/27 08:35 Order name: Chest Single View XRAY; Complete Time: 10:50 kdr 03/27 08:35 Order name: Accucheck; Complete Time: 08:59 kdr 03/27 08:35 Order name: Cardiac monitoring; Complete Time: 09:04 kdr 03/27 08:35 Order name: EKG - Nurse/Tech; Complete Time: 09:41 kdr 03/27 08:35 Order name: IV Saline Lock - Large Bore; Complete Time: 09:04 kdr 03/27 08:35 Order name: Labs collected and sent; Complete Time: 09:04 kdr 03/27 09:09 Order name: Glucose, Ancillary Testing; Complete Time: 10:50 EDTX 03/27 11:40 Order name: CT Abd/Pelvis - IV Contrast Only; Complete Time: 12:37 [facility] 03/27 15:00 Order name: SARS-COV-2 RT PCR EDTX 03/27 08:35 Order name: O2 Per Protocol; Complete Time: 09:04 kdr 03/27 08:35 Order name: O2 Sat Monitoring; Complete Time: 09:04 kdr Administered Medications: 09:04 Drug: NS 0.9% (30 ml/kg) 30 ml/kg Route: IV; Rate: bolus; Site: right forearm; tw2 10:30 Follow up: Response: No adverse reaction; IV Status: Completed infusion; IV Intake: ca1 1700ml 10:13 Drug: Potassium Chloride 40 mEq Route: PO; ca1 11:00 Follow up: Response: No adverse reaction ca1 10:15 Drug: Potassium Chloride 20 mEq Route: IV; Rate: calculated rate; Site: right forearm; ca1 12:15 Follow up: Response: No adverse reaction; IV Status: Completed infusion; IV Intake: ca1 100ml 12:48 Drug: Zofran (Ondansetron) 4 mg Route: IVP; Site: right forearm; ca1 14:39 Follow up: Response: No adverse reaction; Nausea is decreased ca1 12:49 Drug: Cipro (ciprofloxacin) 500 mg Route: PO; ca1 14:39 Follow up: Response: No adverse reaction ca1 12:50 Drug: Flagyl (metroNIDAZOLE) 500 mg Route: PO; ca1 14:39 Follow up: Response: No adverse reaction ca1 Disposition: 03/27/21 12:43 Transfer ordered to [facility]. Diagnosis are Abdominal and pelvic pain, Pancolitis, Hypotension. - Reason for transfer: Higher level of care. - Accepting physician is [facility]: Dr. Cifuentes /Chao, GI. - Condition is Fair. - Problem is new. - Symptoms have improved. Signatures: Dispatcher [employer] EDTX Chilo Nava MD MD kdr Yulissa Servin RN RN tw2 Janell Fraser RN RN ca1 Corrections: (The following items were deleted from the chart) 13:34 12:43 03/27/2021 12:43 Transfer ordered to [facility]. kdr Diagnosis is Abdominal and pelvic pain; Pancolitis; Hypotension. Reason for transfer: Higher level of care. Accepting physician is [facility]. Condition is Fair. Problem is new. Symptoms have improved. kdr 14:04 13:34 CORONAVIRUS+ ordered. EDTX EDMS 16:38 13:34 03/27/2021 12:43 Transfer ordered to [facility]. ca1 Diagnosis is Abdominal and pelvic pain; Pancolitis; Hypotension. Reason for transfer: Higher level of care. Accepting physician is [facility]: Dr. Cifuentes, /Chao, GI. Condition is Fair. Problem is new. Symptoms have improved. kdr
[2021-03-27] MEDS ORDERED: CIPROFLOXACIN HCL 500 MG TAB ONE (13:10)
[2021-03-27] MEDS ORDERED: ONDANSETRON 4 MG/2 ML VIAL ONE (13:10)
[2021-03-27] MEDS ORDERED: metroNIDAZOLE 500 MG TABLET ONE (13:10)
[2021-03-27 17:25] VITALS: BP 92/60; O2SAT 94
--- NOTE | 2021-03-29 09:48 | EKG ---
Test Date: 2021-03-27 Test Time: 09:08:23 Hourly Shift: PHILIPPE MEASUREMENT RESULTS: Intervals: Rate: 76 VT: 206 QRSD: 112 QT: 436 QTc: 490 [place]: P: 25 VT: 206 QRS: -53 T: 69 INTERPRETIVE STATEMENTS: Normal sinus rhythm Left anterior fascicular block Lateral infarct, age undetermined Abnormal ECG No previous ECG available for comparison Electronically Signed On 03-29-21 09:44:09 CDT by Gomez Pickard
== END 2021-03-27 16:38 | disposition short-term general hospital (02) ==
LOC: ER 08:31
DX: K51.00 Ulcerative (chronic) pancolitis without complications (principal); I95.9 Hypotension, unspecified; I10 Essential (primary) hypertension; I48.91 Unspecified atrial fibrillation; Z79.01 Long term (current) use of anticoagulants; Z88.2 Allergy status to sulfonamides; Z91.040 Latex allergy status; Z20.822 Contact with and (suspected) exposure to COVID-19
CPT/HCPCS: 93005; 87040 ×2; 85025; 80048; 36415; 82150; 82550; 85610; 82947; 80076; 83605; 85730; 84484; 82553; 83690; 84145; 74177; 71045; U0003; Q9967; J3480; J7050; J7030; J2405

== ENCOUNTER 2021-05-01 15:55 | Observation (INO) | payer OTHER ==
--- OUTSIDE RECORDS SUMMARY | 2021-05-01 16:36 | XMS REPORT | Continuity of Care Document ---
:1945 Author Organization [facility] t Address [address] [place] [address] Care Team Providers Name Role Phone Gil Gar MD Primary Care Physician HYUN Attending Clinician Unavailable Hyun LOMELI Attending Clinician Francisco LOMELI Attending Clinician Deandre LOMELI, P. Attending Clinician Shazia LOMELI Attending Clinician Tamela Santana MD Attending Clinician Lino Tovar MD Attending Clinician Panchito Alvarenga MD Attending Clinician Gloria Colunga Attending Clinician Sammy LOUIS Attending Clinician Blanca Yu DO Attending Clinician Antonio Choudhary MD Attending Clinician MD Swathi CHOUDHARY. Attending Clinician Unavailable Sarah LOMELI, P. Attending Clinician Laurie Gar MD Attending Clinician TAMELA SANTANA Admitting Clinician Unavailable KENRICK Admitting Clinician Unavailable MD Antonio CHOUDHARY Admitting Clinician Unavailable Payers Payer Name Policy Type Policy Effective Date Expiration Date Sour ce Number [facility] [id number] [facility] - - MEDICARE MGD 00:00:00 Medical Ce nter CAREUNITED MEDICARE [id number]/[id number] 021-Present UHC MEDICAREUHC [id number] 2020 [place] TRS/HEALTHSELECT 00:00:00 Methodis t [id number] 2020-Present Problems Condition Condition Condition Status Onset Resolution Last Treating Co mments Source Name Details Category Date Date Treatment Clinician Date Colitis Colitis Disease Active [facility] 00 Center Cerebrovas Cerebrovas Disease Active H mirta cular cular 4-05 Methodi accident accident 00:00: st (CVA) (CVA) 00 Closed Closed Disease Active 2016-10 [place] fracture fracture 0-19 Method i of neck of of neck of 00:00: st right right 00 femur femur 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 Kumar stocam (current) (current) 2-11 Meth katelynn use of use of 00:00: st selective selective 00 estrogen estrogen receptor receptor modulators modulators (serms) (serms) Allergies, Adverse Reactions, Alerts Allergy Allergy Status Severity Reaction(s) Onset Inactive Treating Comm ents Source Name Type Date Date Clinician Sulfa Drug Active Itching [facility] (Sulfona [facility]ergy [facility]17 [facility] - mide 00:00: Medical Antibiot 00 Center ics) Latex, Drug Active Itching [facility] Natural Allergy 6-17 [facility] - Rubber 00:00: Medical 00 Center Latex Propensi Active Other (See Unknown Kumar ston ty to Comments) 4-05 Methodi adverse 00:00: st reaction 00 s to drug Sulfa Propensi Active [place] (Sulfona ty to 2-11 Methodi mide adverse 00:00: st Antibiot reaction 00 ics) s to drug Social History Social Habit Start Date Stop Date Quantity Comments Source History SDOH [facility] - Alcohol Std Drinks Medica l Center History SDOH [facility] - Alcohol Binge Medical José Miguel ter History SDOH 2021-03-27 2021-03-[address] [facility] - Alcohol Frequency 00:00:00 00:00:00 Medical Center Tobacco use and 2021-01-13 2021-01-13 Never used Tre Brock ethodist exposure 00:00:00 00:00:00 Alcohol intake 2021-01-13 2021-01-[address] [facility] thodist 00:00:00 00:00:00 non-drinker of alcohol (finding) Sex [birth year] Tre Brock ethodist 00:00:00 00:00:00 Smoking Status Start Date Stop Date Source Never smoker [place] Methodis t Medications Ordered Filled Start Stop Current Ordering Indication Dosage Frequency Signature Comments Components Source Medication Medication Date Date Medication? Clinician (SIG) Name Name citalopram Yes 10mg QD Take [address] (CeleXA) 10 6-25 by mouth Luke s - MG tablet 11:51: daily. Medica l 56 [place] ergocalcife Yes [id number] Q7D Take [facility] ro[facility] 6-25 50,000 [facility] - (ERGOCALCIF 11:51: Units by Sc dical JEREMY) 1,250 56 mouth once Ce nter mcg (50,000 a week. unit) capsule ferrous Yes 325mg Take 325 [facility] sulfate 325 6-25 mg by [facility] - (65 FE) MG 11:51: mouth Medica l tablet 56 daily with Center breakfast. fluticasone Yes 1{spray QD [address] propionate 6-25 } Nasal [facility] - (FLONASE) 11:51: route Medical 50 56 daily. [place] mcg/actuati on nasal spray gabapentin Yes 300mg QD Take [address] (NEURONTIN) 6-25 mg by [facility]ukes - 300 MG 11:51: mouth Medical capsule 56 nightly. [place] montelukast Yes 10mg QD Take [address] (SINGULAIR) 6-25 by mouth Luke s - 10 mg 11:51: nightly. Medical tablet 56 [place] nystatin Yes Q.25D Apply [facility] (MYCOSTATIN 6-25 topically [facility] es - ) 100,000 11:51: 4 (four) Medi janet unit/gram 56 times Center powder daily. clopidogreL Yes 75mg QD Take [address] (PLAVIX) 75 6-25 by mouth Luke s - mg tablet 11:51: daily. Medica l 56 Center thiamine Yes 100mg QD Take [address] 100 MG 6-25 mg by Lukes - tablet 11:51: mouth Medical 56 daily. Center tolterodine Yes 2mg Q.5D Take [address] (DETROL) 2 6-25 by mouth 2 [place] [facility] - MG tablet 11:51: (two) Medical 56 times Center daily. amLODIPine 2020- No 5mg QD Take [address] (NORVASC) 5 6-25 06-25 by mouth Whitney es - MG tablet 09:00: 00:00 daily. Medic al 45 :00 Center ipratropium 2020- No 3mL Take [address] [address] -albuteroL 6-25 06-25 by [facility] - (DUO-NEB) 09:00: 00:00 nebulizati M edical 0.5 mg-3 45 :00 on every 6 Cente r mg(2.5 mg (six) base)/3 mL hours as nebulizer needed for solution Wheezing. polyethylen 2020- No 17g QD Take [address] e glycol 6-25 06-25 by mouth [facility]ukes - (GLYCOLAX) 09:00: 00:00 daily. Medi janet 17 gram 45 :00 Center packet vancomycin 2020- No 250mg Q.25D Take [address] (VANCOCIN) 6-25 06-25 mg by [facility]ukes - 250 MG 09:00: 00:00 mouth 4 Medical capsule 45 :00 (four) Center times daily. cefTRIAXone 2020- No 1g Inject [address] 1 gram SolR 6-25 06-25 intravenou L ukes - 1 g 09:00: 00:00 sly. Medical 45 :00 Center docusate 2020- No 100mg Q.5D Take [address] sodium 6-25 06-25 mg by Lukes - (COLACE) 09:00: 00:00 mouth 2 Medic al 100 MG 45 :00 (two) Center capsule times daily. rifAXIMin Yes 550mg Q.5D Take 1 [facility] 550 mg Tab 6-25 tablet Lukes - 00:00: (550 mg Medical 00 total) by Center mouth 2 (two) times daily. ipratropium 2021- Yes 3mL Take [address] -albuteroL 6-25 06-20 by [facility]ukes - (DUO-NEB) 00:00: 23:59 nebulizati M edical 0.5 mg-3 00 :00 on every 6 Cente r mg(2.5 mg (six) base)/3 mL hours as nebulizer needed for solution Wheezing for up to 360 days. potassium 2020- Yes 20meq QD Take [address] chloride 6-25 07-25 mLs (20 [facility]ukes - (KAYCIEL) 00:00: 23:59 mEq total) M edical 20 mEq/15 00 :00 by mouth Center mL solution daily for 30 days. aspirin 2021- No 81mg QD Take 1 Tre (ECOTRIN) 01-17 04-09 tablet (81 Met hodi 81 MG 00:00: 23:59 mg total) st enteric 00 :00 by mouth coated daily. tablet clopidogreL 2020- No 75mg QD Take 1 Kumar shazia (PLAVIX) 75 01-17 05-09 tablet (75 M ethodi mg tablet 00:00: 23:59 mg total) st 00 :00 by mouth daily for 30 days. atorvastati 2020- No 5mg QD Take 5 mg Tre n (LIPITOR) 01-16 04-08 by mouth Met hodi 10 mg 15:12: 00:[address] tablet 02 :00 HYDROcodone Yes 1{tbl} Q.5D Take 1 [place] -acetaminop 4-08 tablet by Met hodi hen (NORCO) 15:12: mouth 2 st 5-325 [...] 15:12: nightly. st tablet 00 ergocalcife Yes [id number] Q7D Take [place] rol 4-08 50,000 [...] vein 40mg QD Inject 0.4 [place] (LOVENOX) -08 thrombosis mL (40 mg Methodi 40 mg/0.4 [...] Date Status Commen ts Source Name Name [employer] COVID-19 MRNA 2020-12-11 Completed [place] VACCINATION 00:00:00 [facility] [employer] COVID-19 MRNA 2020-11-20 Completed [place] VACCINATION 00:00:00 [facility] FLUCELVAX QUAD PF 2017-08-04 Completed [place] 00:00:00 [facility] Vital Signs Vital Name Observation Time Observation Value Comments Source Heart rate 2021-04-04 10:07:00 94 /min [facility] Respiratory rate 2021-04-04 10:07:00 16 /min [facility] Oxygen saturation in 2021-04-04 10:07:00 94 /min [facility] - Arterial blood by Medical Ce nter Pulse oximetry Systolic blood 2021-04-04 08:25:00 149 mm[Hg] [facility] Diastolic blood 2021-04-04 08:25:00 88 mm[Hg] [facility] Body temperature 2021-04-04 08:25:00 36 Janette [facility] Body height 2021-03-27 18:17:00 157.5 cm [facility] Body weight 2021-03-27 18:17:00 60.782 kg [facility] BMI 2021-03-27 18:17:00 24.51 kg/m2 [facility] Systolic blood 2021-01-16 11:00:00 158 mm[Hg] [place] [facility] pressure Diastolic blood 2021-01-16 11:00:00 93 mm[Hg] [place] [facility] pressure Heart rate 2021-01-16 11:00:00 55 /min [place] [facility] Body temperature 2021-01-16 11:00:00 36 Janette [place] [facility] Respiratory rate 2021-01-16 11:00:00 18 /min [place] [facility] Oxygen saturation in 2021-01-16 11:00:00 95 /min [place] [facility] Arterial blood by Pulse oximetry Body weight 2021-01-16 04:58:54 60.238 kg [place] [facility] BMI 2021-01-16 04:58:54 24.29 kg/m2 [place] [facility] Body height 2021-01-13 04:05:35 157.5 cm [place] [facility] Procedures Procedure Date / Time Performing Clinician Source Performed BASIC METABOLIC PANEL (7) 2021-04-04 04:31:00 Chase Mccray [facility] CALCIUM, IONIZED 2021-04-04 04:31:00 Chase Mccray [facility] PHOSPHORUS 2021-04-04 04:31:00 Chase Mccray [facility] CBC W/PLT COUNT & AUTO 2021-04-04 04:31:[address] [facility] MAGNESIUM 2021-04-04 04:31:00 [facility] RE[facility] OF [facility]EDURE - 2021-04-03 18:15:47 Keanu, Godwin [facility] ENDOSCOPY [facility] [place] FLUORO NON-SPECIFIC UP 2021-04-03 17:34:00 [facility] UPPER ENDOSCOPY,FNA 2021-04-03 16:53:00 [facility] ERCP,PANCREATIC STENT 2021-04-03 16:53:00 Keanu, Godwin [facility] BASIC METABOLIC PANEL (7) 2021-04-03 15:09:00 [facility]OL[facility] PANEL (7) 2021-04-03 04:12:00 Chase Mccray [facility] PHOSPHORUS 2021-04-03 04:12:00 [facility] CBC W/PLT COUNT & AUTO 2021-04-03 04:12:00 Chase Mccray [facility] MAGNESIUM 2021-04-03 04:12:[address] [facility] CALCI[facility], IONIZED 2021-04-03 04:11:00 [facility]ST 1 VIEW 2021-04-02 14:53:00 Chase Mccray [facility]BEDSIDE [facility] Center URINALYSIS W/ REFLEX 2021-04-02 14:34:00 [facility] REPORT OF PROCEDURE - 2021-04-02 14:10:50 Keanu, [facility] BLOOD CULTURE 2021-04-02 00:48:00 Tatianna [facility] BLOOD CULTURE 2021-04-02 00:42:00 [facility] REPORT OF [facility]EDURE - 2021-04-01 17:10:59 Keanu, [facility] TISSUE EXAM 2021-04-01 17:01:00 Keanu, [facility] COLONOSCOPY,BIOPSY 2021-04-01 16:30:00 Keanu, [facility] UPPER ENDOSCOPY,BIOPSY 2021-04-01 16:30:00 Keanu, [facility] CBC W/PLT COUNT & AUTO 2021-04-01 05:36:00 Arti Carrera [facility] BASIC METABOLIC PANEL (7) 2021-04-01 05:36:00 Arti Carrera [facility] HEPATIC FUNCTION PANEL 2021-04-01 05:36:00 Arti Carrera [facility] MR ABDOMEN WITH & WITHOUT 2021-03-30 13:10:00 Keanu, [facility] XR CHEST 1 VIEW 2021-03-30 08:37:00 Arti Carrera [facility]EDSIDE [facility] Center CBC W/PLT COUNT & AUTO 2021-03-29 05:52:00 Arti Carrera [facility] BASIC METABOLIC PANEL (7) 2021-03-29 05:52:00 Arti Carrera [facility] HEPATIC FUNCTION PANEL 2021-03-29 05:52:00 Arti Carrera P. CH I [facility] (CELLAVISION MANUAL DIFF) 2021-03-29 05:52:00 Arti Carrera [facility] STOOL PATH CHARGE 2021-03-28 11:09:00 Jyothi Cuellar [facility] C. DIFFICILE GDH TOXIN 2021-03-28 11:09:[address] [facility] OVA AND PARASITE 2021-03-28 11:09:00 Jyothi Cuellar [facility] STOOL CULTURE + SHIGA 2021-03-28 11:09:00 Jyothi Cuellar [facility] TOXIN [facility] SHIGA TOXIN SCREEN 2021-03-28 11:09:00 Jyothi Cuellar [facility] SARS-COV2/RT-PCR ([facility] & 2021-03-28 01:40:00 Sonal Santana CH [facility] - REF LABS) [facility] BLOOD CULTURE 2021-03-28 01:25:00 Sonal Santana [facility] COMPREHENSIVE METABOLIC 2021-03-28 00:47:00 Sonal Santana [facility] PANEL [facility] CBC W/PLT COUNT & AUTO 2021-03-28 00:47:00 [facility] DIFFERENTIAL [facility] PROTHROMBIN TIME/INR 2021-03-28 00:47:[address] [facility] MAGNESIUM 2021-03-28 00:47:00 Sonal Santana [facility] LACTIC ACID, VENOUS 2021-03-28 00:47:[address] [facility] (CELLAVISION MANUAL DIFF) 2021-03-28 00:47:[address] [facility] BASIC METABOLIC PANEL 2021-01-15 05:46:00 Claudio Beach HC COMPLETE BLD COUNT 2021-01-15 05:46:00 Claudio Beach W/AUTO DIFF Latrondrclarita Martha ESTIMATED GFR 2021-01-15 05:46:00 Tre [place] TROPONIN 2021-01-13 18:29:00 Zoey Yu Me [facility]odist [place] LACTIC ACID LEVEL, SEPSIS 2021-01-13 18:28:00 Zoey Yu - NOW AND REPEAT 2X EVERY [place] 3 HOURS HEMOGLOBIN A1C 2021-01-13 13:58:00 Radha Lázaro [place] [facility] ethodist TROPONIN 2021-01-13 13:58:00 Zoey Yu Sc thodist [place] LIPID PANEL 2021-01-13 13:58:00 Radha, Lázaro [place] M ethodist TTE COMPLETE, WO 2021-01-13 12:45:00 Lázaro Garcia CONTRAST, W DOPPLER ([id number]) US CAROTID DUPLEX 2021-01-13 10:02:47 Lázaro Garcia BILATERAL MRA HEAD WO CONTRAST 2021-01-13 07:33:16 Lázaro Garcia [facility] MRI BRAIN WO CONTRAST 2021-01-13 07:32:49 Lázaro Garcia [facility] MRA NECK WO CONTRAST 2021-01-13 07:32:27 Lázaro Garcia [facility] XR HAND 3+ VW LEFT 2021-01-13 04:24:[address] [place] [address] HEAD WO CONTRAST 2021-01-13 02:30:36 Zoey Yu n [facility] [place] CT CERVICAL SPINE WO 2021-01-13 02:30:22 Zoey Yu on Orthodox CONTRAST [place] URINE CULTURE 2021-01-13 01:57:00 Zoey Yu Sc thodist [place] URINALYSIS SCREEN AND 2021-01-13 01:57:00 Zoey Yu MICROSCOPY, WITH REFLEX [place] TO CULTURE XR HIPS BILATERAL AP 2021-01-13 01:15:19 Zoey Yu on [facility] LATERAL W AP PELVIS [place] XR CHEST 1 VW PORTABLE 2021-01-13 01:15:04 Zoey Yu [place] COVID-19 QUALITATIVE 2021-01-13 00:58:00 Zoey Yu RT-PCR [place] BLOOD CULTURE, AEROBIC & 2021-01-13 00:57:00 Zoey Yu ANAEROBIC [place] BLOOD CULTURE, AEROBIC & 2021-01-13 00:46:00 Zoey Yu ANAEROBIC [place] HC COMPLETE BLD COUNT 2021-01-13 00:46:00 Zoey Yu [facility] W/AUTO DIFF [place] PROTHROMBIN TIME WITH INR 2021-01-13 00:46:00 Zoey Yu PARTIAL THROMBOPLASTIN 2021-01-13 00:46:00 Zoey Yu TIME (PTT) [place] COMPREHENSIVE METABOLIC 2021-01-13 00:46:00 Zoey Yu PANEL [place] LACTIC ACID LEVEL, SEPSIS 2021-01-13 00:46:00 Zoey Yu - NOW AND REPEAT 2X EVERY [place] 3 HOURS LIPASE LEVEL 2021-01-13 00:46:00 Zoey Yu Sc [facility] [place] CREATINE KINASE, TOTAL 2021-01-13 00:46:00 Zoey Yu (CPK) [place] TROPONIN 2021-01-13 00:46:00 Zoey Yu Sc [facility] [place] B NATRIURETIC PEPTIDE 2021-01-13 00:46:00 Zoey Yu ALCOHOL LEVEL, BLOOD 2021-01-13 00:46:00 Zoey Yuist [place] ESTIMATED GFR 2021-01-13 00:46:00 Zoey Yu [facility] [place] ECG 12-LEAD 2021-01-13 00:38:45 Zoey Yu Me [facility]odist [place] ECG ED PRELIMINARY 2021-01-13 00:27:02 Zoey Yu INTERPRETATION [place] MA CRITICAL CARE, E/M 2021-01-13 00:27:02 Zoey Yu [facility] 30-74 MINUTES [place] MAMMO SELF REQUESTING 2020-08-29 15:38:33 Gil Gar [facility] SCREENING BILATERAL W ZHOU Plan of Care Planned Activity Planned Date Details Comments Source Future Scheduled Test 2021-06-11 [address] [facility] (#1) [code = Medical Center INFLUENZA VACCINE (#1)] Future Scheduled Test 2021-05-11 INFLUENZA VACCINE [place] [facility] 00:00:00 [code = INFLUENZA VACCINE] Future Scheduled Test 2021-01-09 [facility] (WELCOME TO MEDICARE) Medica l Center [code = Medicare IPPE (WELCOME TO MEDICARE)] Future Scheduled Test 2020-10-[address] [facility] - 00:00:00 (12+) [code = Medical Center DEPRESSION SCREENING (12+)] Future Scheduled Test 2008-01-20 PNEUMOCOCCAL 65+ Y[facility] - 00:00:00 (1 of 1 - Medical Center [id number] PCV13) [code = PNEUMOCOCCAL 65+ YRS (1 of 1 - [id number] PCV13)] Future Scheduled Test 1993 SHINGLES VACCINES ([address] [facility] - 00:00:00 of 2) [code = Medical Center SHINGLES VACCINES (1 of 2)] Future Scheduled Test 1962 DTAP/TDAP/TD VACCINES [facility] - 00:00:00 (1 - Tdap) [code = Medical C enter DTAP/TDAP/TD VACCINES (1 - Tdap)] Future Scheduled Test 1961 HEPATITIS C SCREENING [facility] - 00:00:00 [code = HEPATITIS C Medical Center SCREENING] Future Scheduled Test 1961 Hepatitis C screening [place] [facility] 00:00:00 (procedure) [code = 560810269] Future Scheduled Test 1955 COVID-19 VACCINE (1) [facility] - 00:00:00 [code = COVID-[address] VACCINE (1)] Future Appointment 2021-05-13 Godwin Colunga, [address] [facility] - 14:00:00 Alba; Len [address]B, [place] [address] Future Appointment 2021-05-13 Godwin Coydi, [address] [facility] - 14:00:00 Alba; Len 8B, [place] [address] Encounters Start End Encounter Admission Attending Care Care Encounter Source Date/Time Date/Time Type Type Clinicians Facility Department ID 2021-01-13 2021-01-16 Inpatient KENRICK, [facility] [id number] [place] 00:00:00 00:00:00 LATRICE 954 [place] di 2020-12-11 2020-12-11 Outpatient HANNYN, [facility] [id number] [place] 00:00:00 00:00:00 ARLYN 369 Sc thodi 2020-11-20 2020-11-20 Outpatient [facility] [id number] [place] 00:00:00 00:00:[address] 2020-08-29 2020-08-29 Outpatient RODDY, [facility] [id number] [place] 00:00:00 00:00:00 GIL White [facility] i [facility] Results Test Description Test Time Test Comments Results Result Comments Source Blood Culture - Routine (Right Venipuncture) 2021-04-07 02:0 1:00 Test Item Value Reference Range Interpretation Comme nts Result (test code = 6463-4) No growth in 5 days [facility] [id number] 02:01:00 Test Item Value Reference Range Interpretation Comments CULTURE (BEAKER) (test No growth in 5 days code = 1095) BLOOD [id number] 02:01:00 Test Item Value Reference Range Interpretation Comments CULTURE (BEAKER) (test No growth in 5 days code = 1095) CBC with platelet count + automated [id number] 06:20:00 Test Item Value Reference Range Interpretation Comments WBC (test code = 6690-2) 12.8 See_Comment H [A utomated message] The system [employer] generated this result transmitted ref erence range: 3.5 - 10 .5 K/L. The refe rence range was not u sed to interpret this result as normal/abnor mal. RBC (test code = 789-8) 3.89 See_Comment L [Au tomated message] The system [employer] generated this result transmitted ref erence range: 3.93 - 5 .22 M/L. The refe rence range was not u sed to interpret this result as normal/abnor mal. MCHC (test code = 786-4) 32.1 See_Comment L [A utomated message] The system [employer] generated this result transmitted ref erence range: 32.2 - 3 5.5 GM/DL. The refe rence range was not u sed to interpret this result as normal/abnor mal. Hematocrit (test code = 34.3 % 34.1-44.9 4544-3) MCV (test code = 787-2) 88.2 fL 79.4-94.8 MCH (test code = 785-6) 28.3 pg 25.6-32.2 RDW (test code = 788-0) 17.0 % 11.7-14.4 H Platelets (test code = 327 See_Comment [Aut omated message] 777-3) The system [employer] generated this result transmitted ref erence range: 150 - 45 0 K/CU MM. The referen ce range was not u sed to interpret this result as normal/abnor mal. MPV (test code = 8.3 fL 9.4-12.3 L 82620-7) nRBC (test code = 413) 0 See_Comment [Aut omated message] The system [employer] generated this result transmitted ref erence range: 0 - 0 /1 00 WBC. The refere nce range was not u sed to interpret this result as normal/abnor mal. % Neutros (test code = 89 % 429) % Lymphs (test code = 9 % 430) % Monos (test code = 2 % 431) % Eos (test code = 432) 0 % % Baso (test code = 437) 0 % # Neutros (test code = 11.36 See_Comment H [Aut omated message] 670) The system [employer] generated this result transmitted ref erence range: 1.56 - 6 .13 K/L. The refe rence range was not u sed to interpret this result as normal/abnor mal. # Lymphs (test code = 1.14 See_Comment L [Auto mated message] 414) The system [employer] generated this result transmitted ref erence range: 1.18 - 3 .74 K/L. The refe rence range was not u sed to interpret this result as normal/abnor mal. # Monos (test code = 0.19 See_Comment L [Autom ated message] 415) The system [employer] generated this result transmitted ref erence range: 0.24 - 0 .36 K/L. The refe rence range was not u sed to interpret this result as normal/abnor mal. # Eos (test code = 416) 0.00 See_Comment L [Au tomated message] The system [employer] generated this result transmitted ref erence range: 0.04 - 0 .36 K/L. The refe rence range was not u sed to interpret this result as normal/abnor mal. # Baso (test code = 417) 0.03 See_Comment [A utomated message] The system [employer] generated this result transmitted ref erence range: 0.01 - 0 .08 K/L. The refe rence range was not u sed to interpret this result as normal/abnor mal. Immature 1 % 0-1 Granulocytes-Relative (test code = 2801) Lab Interpretation (test Abnormal code = 89891-3) [facility] W/PLT COUNT & AUTO [id number] 06:20:00 Test Item Value Reference Range Interpretation Comments WHITE BLOOD CELL COUNT (BEAKER) 12.8 K/ L 3.5-10.5 H (test code = 775) RED BLOOD CELL COUNT (BEAKER) 3.89 M/ L 3.93-5.22 L (test code = 761) HEMOGLOBIN (BEAKER) (test code = 11.0 GM/DL 11.2-15.7 L 410) HEMATOCRIT (BEAKER) (test code = 34.3 % 34.1-44.9 411) MEAN CORPUSCULAR VOLUME (BEAKER) 88.2 fL 79.4-94.8 (test code = 753) MEAN CORPUSCULAR HEMOGLOBIN 28.3 pg 25.6-32.2 (BEAKER) (test code = 751) MEAN CORPUSCULAR HEMOGLOBIN CONC 32.1 GM/DL 32.2-35.5 L (BEAKER) (test code = 752) RED CELL DISTRIBUTION WIDTH 17.0 % 11.7-14.4 H (BEAKER) (test code = 412) PLATELET COUNT (BEAKER) (test 327 K/CU MM 150-450 code = 756) MEAN PLATELET VOLUME (BEAKER) 8.3 fL 9.4-12.3 L (test code = 754) NUCLEATED RED BLOOD CELLS 0 /100 WBC 0-0 (BEAKER) (test code = 413) NEUTROPHILS RELATIVE PERCENT 89 % (BEAKER) (test code = 429) LYMPHOCYTES RELATIVE PERCENT 9 % (BEAKER) (test code = 430) MONOCYTES RELATIVE PERCENT 2 % (BEAKER) (test code = 431) EOSINOPHILS RELATIVE PERCENT 0 % (BEAKER) (test code = 432) BASOPHILS RELATIVE PERCENT 0 % (BEAKER) (test code = 437) NEUTROPHILS ABSOLUTE COUNT 11.36 K/ L 1.56-6.13 H (BEAKER) (test code = 670) LYMPHOCYTES ABSOLUTE COUNT 1.14 K/ L 1.18-3.74 L (BEAKER) (test code = 414) MONOCYTES ABSOLUTE COUNT (BEAKER) 0.19 K/ L 0.24-0.36 L (test code = 415) EOSINOPHILS ABSOLUTE COUNT 0.00 K/ L 0.04-0.36 L (BEAKER) (test code = 416) BASOPHILS ABSOLUTE COUNT (BEAKER) 0.03 K/ L 0.01-0.08 (test code = 417) IMMATURE GRANULOCYTES-RELATIVE 1 % 0-1 PERCENT (BEAKER) (test code = 2801) Basic Metabolic [id number] 06:01:00 Test Item Value Reference Range Interpretation Comments Sodium (test code = 141 meq/L 844-544 4410-2) Potassium (test code = 3.5 meq/L 3.5-5.1 2823-3) Chloride (test code = 108 meq/L 98-107 H 2074-0) CO2 (test code = 27 meq/L 22-29 2027-9) BUN (test code = 8 mg/dL 7- 3094-0) Creatinine (test code 0.61 mg/dL 0.57-1.25 = 2160-0) Glucose (test code = 162 mg/dL 70-105 H 2345-7) Calcium (test code = 7.7 mg/dL 8.4-10.2 L 56004-8) EGFR (test code = 95 mL/min/1.73 sq m ESTIMA [place] [address]-9) NOT ACCURATE CREATININE CLEARANCE IN PREDICTING GLOMERULAR FILTRATION RATE . ESTIMATED GFR I S NOT APPLICABLE FOR DIALYSIS PATIENTS. GABRIEL (test code = GABRIEL) Sales Correspondence Clerk ID - EDASI Lab Interpretation Abnormal (test code = 17712-6) [facility] [id number] 06:01:00 Test Item Value Reference Range Interpretation Comments SODIUM (BEAKER) 141 meq/L 136-145 (test code = 381) POTASSIUM (BEAKER) 3.5 meq/L 3.5-5.1 (test code = 379) CHLORIDE (BEAKER) 108 meq/L 98-107 H (test code = 382) CO2 (BEAKER) (test 27 meq/L 22-29 code = 355) BLOOD UREA NITROGEN 8 mg/dL 7-21 (BEAKER) (test code = 354) CREATININE (BEAKER) 0.61 mg/dL 0.57-1.25 (test code = 358) GLUCOSE RANDOM 162 mg/dL 70-105 H (BEAKER) (test code = 652) CALCIUM (BEAKER) 7.7 mg/dL 8.4-10.2 L (test code = 697) EGFR (BEAKER) (test 95 mL/min/1.73 ESTIMA REGINA GFR IS code = 1092) sq m NOT ACCURATE CREATININE CLEARANCE IN PREDICTING GLOMERULAR FILTRATION RATE . ESTIMATED GFR I S NOT APPLICABLE FOR DIALYSIS PATIEN TS. Sales Correspondence Clerk ID - [id number] 05:59:00 Test Item Value Reference Range Interpretation Comments Magnesium (test code = 2.1 mg/dL 1.6-2.6 96850-1) GABRIEL (test code = GABRIEL) Sales Correspondence Clerk ID - EDASI Lab Interpretation (test Normal code = 72476-0) [facility] 05:59:00 Test Item Value Reference Range Interpretation Comments Phosphorus (test code = 3.9 mg/dL 2.3-4.7 2777-1) GABRIEL (test code = GABRIEL) Sales Correspondence Clerk ID - EDASI Lab Interpretation (test Normal code = 91471-5) [facility]UM2021-[facility]-25 05:59:00 Test Item Value Reference Range Interpretation Comments MAGNESIUM (BEAKER) (test code = 2.1 mg/dL 1.6-2.6 627) Sales Correspondence Clerk ID - [id number] 05:59:00 Test Item Value Reference Range Interpretation Comments PHOSPHORUS (BEAKER) (test code = 3.9 mg/dL 2.3-4.7 604) Sales Correspondence Clerk ID - EDASICalcium, [id number] 05:16:00 Test Item Value Reference Range Interpretation Comments Calcium, Ion (test code = 1994-3) 1.08 mmol/L 1.12-1.27 L pH, Blood (test code = 86097-5) 7.40 Lab Interpretation (test code = Abnormal 41789-8) [facility] CenterCAL[facility], [id number] 05:16:00 Test Item Value Reference Range Interpretation Comments CALCIUM IONIZED (BEAKER) (test 1.08 mmol/L 1.12-1.27 L code = 698) PH, BLOOD (BEAKER) (test code = 7.40 1810) FL, FLUORO, NON-SPECIFIC, UP TO 1 [id number] 17:34:00Reason for exam:- >elevated liver enzymes [facility] : 1945 Sex: FFluoroscopic unit utilized for a procedure performed in the OR. No interpretation was requested. Refer to the operative report for findings. Refer to PACS for patient radiation dose information.FL fluoro non-specific up to 1 [id number] 17:34:00 Interface, External Ris In 04/03/2021 6:08 PM CDTFluoroscopic unit utilized for a procedure performed in the OR. No interpretation was requested. Refer to the operative report for findings. Referto PACS for patient radiation dose information.[facility]OLIC [id number] 15:50:00 Test Item Value Reference Range Interpretation Comments SODIUM (BEAKER) 142 meq/L 136-145 (test code = 381) POTASSIUM (BEAKER) 3.5 meq/L 3.5-5.1 (test code = 379) CHLORIDE (BEAKER) 107 meq/L 98-107 (test code = 382) CO2 (BEAKER) (test 26 meq/L 22-29 code = 355) BLOOD UREA NITROGEN 8 mg/dL 7-21 (BEAKER) (test code = 354) CREATININE (BEAKER) 0.62 mg/dL 0.57-1.25 (test code = 358) GLUCOSE RANDOM 82 mg/dL 70-105 (BEAKER) (test code = 652) CALCIUM (BEAKER) 7.8 mg/dL 8.4-10.2 L (test code = 697) EGFR (BEAKER) (test 93 mL/min/1.73 ESTIMA REGINA GFR IS code = 1092) sq m NOT ACCURATE CREATININE CLEARANCE IN PREDICTING GLOMERULAR FILTRATION RATE . ESTIMATED GFR I S NOT APPLICABLE FOR DIALYSIS PATIEN TS. Sales Correspondence Clerk ID - DBBAUNIV[facility] METABOLIC [id number] 08:09:00 Test Item Value Reference Range Interpretation Comments SODIUM (BEAKER) 140 meq/L 136-145 (test code = 381) POTASSIUM (BEAKER) 2.7 meq/L 3.5-5.1 L (test code = 379) CHLORIDE (BEAKER) 108 meq/L 98-107 H (test code = 382) CO2 (BEAKER) (test 24 meq/L 22-29 code = 355) BLOOD UREA NITROGEN 8 mg/dL 7-21 (BEAKER) (test code = 354) CREATININE (BEAKER) 0.62 mg/dL 0.57-1.25 (test code = 358) GLUCOSE RANDOM 86 mg/dL 70-105 (BEAKER) (test code = 652) CALCIUM (BEAKER) 7.6 mg/dL 8.4-10.2 L (test code = 697) EGFR (BEAKER) (test 93 mL/min/1.73 ESTIMA REGINA GFR IS code = 1092) sq m NOT ACCURATE CREATININE CLEARANCE IN PREDICTING GLOMERULAR FILTRATION RATE . ESTIMATED GFR I S NOT APPLICABLE FOR DIALYSIS PATIEN TS. Sales Correspondence Clerk ID - BART [id number] 08:07:00 Test Item Value Reference Range Interpretation Comments MAGNESIUM (BEAKER) (test code = 1.7 mg/dL 1.6-2.6 627) Sales Correspondence Clerk ID - BART [id number] 08:07:00 Test Item Value Reference Range Interpretation Comments PHOSPHORUS (BEAKER) (test code = 3.3 mg/dL 2.3-4.7 604) Sales Correspondence Clerk ID - BART MCALCIUM, [id number] 05:11:00 Test Item Value Reference Range Interpretation Comments CALCIUM IONIZED (BEAKER) (test 1.11 mmol/L 1.12-1.27 L code = 698) PH, BLOOD (BEAKER) (test code = 7.42 1810) CBC W/PLT COUNT & AUTO [id number] 05:07:00 Test Item Value Reference Range Interpretation Comments WHITE BLOOD CELL COUNT (BEAKER) 12.1 K/ L 3.5-10.5 H (test code = 775) RED BLOOD CELL COUNT (BEAKER) 4.06 M/ L 3.93-5.22 (test code = 761) HEMOGLOBIN (BEAKER) (test code = 11.4 GM/DL 11.2-15.7 410) HEMATOCRIT (BEAKER) (test code = 36.2 % 34.1-44.9 411) MEAN CORPUSCULAR VOLUME (BEAKER) 89.2 fL 79.4-94.8 (test code = 753) MEAN CORPUSCULAR HEMOGLOBIN 28.1 pg 25.6-32.2 (BEAKER) (test code = 751) MEAN CORPUSCULAR HEMOGLOBIN CONC 31.5 GM/DL 32.2-35.5 L (BEAKER) (test code = 752) RED CELL DISTRIBUTION WIDTH 16.9 % 11.7-14.4 H (BEAKER) (test code = 412) PLATELET COUNT (BEAKER) (test 287 K/CU MM 150-450 code = 756) MEAN PLATELET VOLUME (BEAKER) 9.0 fL 9.4-12.3 L (test code = 754) NUCLEATED RED BLOOD CELLS 0 /100 WBC 0-0 (BEAKER) (test code = 413) NEUTROPHILS RELATIVE PERCENT 76 % (BEAKER) (test code = 429) LYMPHOCYTES RELATIVE PERCENT 14 % (BEAKER) (test code = 430) MONOCYTES RELATIVE PERCENT 6 % (BEAKER) (test code = 431) EOSINOPHILS RELATIVE PERCENT 3 % (BEAKER) (test code = 432) BASOPHILS RELATIVE PERCENT 1 % (BEAKER) (test code = 437) NEUTROPHILS ABSOLUTE COUNT 9.21 K/ L 1.56-6.13 H (BEAKER) (test code = 670) LYMPHOCYTES ABSOLUTE COUNT 1.74 K/ L 1.18-3.74 (BEAKER) (test code = 414) MONOCYTES ABSOLUTE COUNT (BEAKER) 0.69 K/ L 0.24-0.36 H (test code = 415) EOSINOPHILS ABSOLUTE COUNT 0.36 K/ L 0.04-0.36 (BEAKER) (test code = 416) BASOPHILS ABSOLUTE COUNT (BEAKER) 0.07 K/ L 0.01-0.08 (test code = 417) IMMATURE GRANULOCYTES-RELATIVE 0 % 0-1 PERCENT (BEAKER) (test code = 2801) No platelet clumps seenTissue [id number] 20:17:00 Test Item Value Reference Range Interpretation Comments Case Report (test code Surgical Pathology = 104) Report Case: [id number] Authorizing Provider: Godwin Colunga Collected: 04/01/2021 05:01 PM Ordering Location: [address] Received: 04/02/2021 09:05 AM Service Pathologist: Jazmine Huitron MD Specimens: A) - Biopsy, Jejunum, talisha limb random biopsies B) - Large Intestine, Colon - Right/Ascending, random biopsies R/O microscopic colitis C) - Large Intestine, Colon - Left/Descending, random biopsies DIAGNOSIS (test code = [id number] 3220) FuZzEwMzNcZnRuYmpcdWMx IHtccnRmMVxlcGljOTIwMl lxkiFrAIRbyXFgR2Gnltkm QMaqRJ1lFW2wfNjzpTCmeC TxNWVbAvUgs4phz347gFZt a4vkWPGOnjxwmBn8bRptN3 9tx7P3KfcsP07mwZUmSQjg bGFpblxmczIwIEEuIEpFSl ZTJZ8cXYDNQBjgQKrKFybm AH8DH9BJC3GZKcQJKA0SI6 p3IKKdzfYxSLSAKVUUMUHY K8pPRFKFUKNTS2LoG2gCCH UZEyYBPSGUC1nDS6cDQHHT LCAWOHULW73mcFDzAMCxVA 0QNCFHCV9QKLXtDufQHFcr XYfQKK2ZVW1GEVTxBIVOD9 WBYHBRVGOQKlCZQPrHI69E MoLTWHLKQY1mgEHlOIDkdq ZUReWGN8cCZleqWfvLUDSj TENBCY2VWH6RSFHQPN7MY4 5rAGPFQE4UZ65EGVDeQNZN A8LIDSwfuUPsICPcFUWDCP 9ZSQNxQUSQN6YGNDoDLQfu XT4OXrLRM5WPNPAIOfONMO VQSVRIRUxJQUwgTFlNUEhP E8tELBFoVULYRFGBY36QCV 3KQAlgARDlNG7gVl7uW4qY TklGSUNBTlQgQVJDSElURU BLDEYEVGODISEYK5NRVP9K QMUUTV0zwUPwRCRjNI9JDV XAPeVOQDzGC7aUX7nEJyDy DHpFXQ1OZT6INDYzHTWKY4 GRYWOQBJIOTgCVBSmOA00Q TkNZIFBSRVNFTlQgXHBhcl ozIIUxDk4dU98BN22sEGvU CaCoMXULT6IBZLuNTfmePq HREL9GSLBHUtBCV0YVIQqW UZZTFF2OM5q3ZDQjlxPoXN DLW3mAVtpIEO5FI07WPRZW ECHTZPoIF9RPQJLGAYRKDg RSQUVQSVRIRUxJQUwgIExZ LGRXC8JFKZVZORoUBRKuP0 3WCSZGZMqksCQfEXChSO8R MBQNT71TEqoXFC8KEKEUF9 gKWTCRCQQCIJiyBAaPYN9R VElPTiBTRUVOXHBhciAgLS BOTyBWSVJBTCBJTkNMVVNJ J33OBOUCLgUBZWsWGSZAOI MOMGCKWCPMKBQhP2OmTRBQ XJoOBP9BDNXPQqQXXD3RCQ xwYXJccGFyfXtccnRmMVxz w8LsZDtaOVRoEO5zbRmhPO WyQD0vWRPvN4zhpB6hxjy7 KyCpXURnJgT3EOPepxX6Ng x4HMUbCMpci3mbx1VlUOEv TNy4gSbsYaDeLCEry8wxwl BcZmNoYXJzZXQwIEFyaWFs C750x2uur0tupuHwrDY2YL WdYRK1UHjbuqLpxqO8EHwr aSMwNsA5BXmdalDyCVtbjt AfblXkKjo7JTHnC637IQO5 aAykh1xnRZB1CYNcRMKzQs BrYn3edRWpP270EOCqFYUV GBJlcMc0PIPgtgQftbUybR VYz030H985m2bqXMHaqiXj pRdVtkzvh7fsX798LCDdqB VydzEyMjQwXHBhcGVyaDE1 UBYnBX0pnqoiPQysSHrmQH KvsnW3ZNJhxKNcW0AtBDEd RP8iqylnSLC4IIzhWQDiVW I8DlAzGAFgj8Nbqpp0ZtNo st1suo17DES6n2FaqFggSH P0LZZ7SbBeTo7lsSJhSDBb VS4tCkLcwXYqQMIqmi56xE cnWUlkNZR7BCFpveGld2Ja n1hhXoVsrwHzB9pdJ6CpQG ZbCVShWDFkHmQuleLfp3Cl a9KjaAKmeZk6o3agXMLbJA RjoJeen7poTTV4PMOboHHz Q7udvC7oHYIlBS1kyadjr6 xhOBcrANbzQRBdrGS7qcD1 QRWcdRTgT0EknU5fRVIiBV nnTEMtxbk3RuSyVj4lvRCy eTcyMFxzYmtwYWdlXHBnbm NvbnRccGduZGVjXHBsYWlu XHBsYWluXGYwXGZzMjRccW xcbGFuZzEwMzNcaGljaFxm PLezQhIqRDHkEOyaJ6gfQr SgOkTzWhl5JFKpgWGvYDSk Zkk2PMTnrLRjYOOHhDipzH 1mUMVfzAzgmE8wwQA8BLOz ndWbvWFZqT1zVLCNbE5qOp I0IxZjUfT6BUS9HfupfSVn fX0= COMMENT (test code = b6nslVYrQFZrgEA3BpZaEB 3358) Cir2ntm3GhkDLtmAHoUGwr cBHtyxIcwu80yMZ5dF26FM 5pCRWyWkR0YNQtezQ7Dxh4 SOKzYWXosXRxN642h0phj4 qrneUumTY0vXhfHFKqNWUf GJqxTCSyOkUvSVfnm0RxRw MbuIPiBGMccQM9NCFxNLC0 TRK5cnLvoT3dyJ3cuHFaUz Wrl8rddYoeTEOagsWvYOzb UQVkLXFei4HjwU3xOLG3fL 0gufWfpJ9zEwOrpUezbaVa GVVfIGQqLCWhnI1yK0VyRL UiwmOoqQV8xN6bMZnlQHGd S97caHCiMXBwGuMeaZOjYS BhclxwYXJccGFyfQ== CPT Code(s) (test code e2aopNPpYOSgoBA7KqKzNG = 3354) Jzg0cpy1KgfOZsuICwCSwt nMLftcPepv56dQG3hO34TI 7cEDFiIyY2QPPnczT6Pzo4 HYZvBFMasQBbF110s0mte7 tyvpFpaIU3tBfqCCTaNUBh YWluXGZzMjAgODgzMDUgeC AzXHBhcn0= CLINICAL HISTORY (test j0tfxYWsAPSjpIQ3KfUyFI code = 3356) Vwr7bxx1YhlKYlyZUqQGmp bQGlvhUnvp34nRS6aM13FN 9fFHKgUjF2BJPypoB0Kmg6 ILEmJULjuXGqZ028o0siu7 qqcfPndBL7jXzmBCHoXOIc YWluXGZzMjAgRGlhcnJoZW EgXHBhcn0= SPECIMEN SOURCE (test a3zddLElZKNksZR7CnRxBE code = 3377) Rqh2qnq0HcuCHwkQLuJSlk jOBaumPpku19mKP7bN04YU 7eICPkArG5ENUerwY9Gjt0 KSHmXZRbqROfP927r6uqm0 qraaZymSY4tFpcZWKnTSBg FYofRAOnXjMvTW3fTSjyca DgzL1ggFoeXMARTzRqLNEa ZP0mfF4fTSLohD7qLOkfjt ZvQa5mKSPnt4GykrWwtvgu G16bd73vjQEmvJ== GROSS DESCRIPTION (test p7arlRYeLWWcbISbDjZaNH code = 3366) EyTBNxx7xcUBOonMYgPrFk MzNcZnRuYmpcdWMxXGRlZm Mbh1pcl481lIEtb7amTATu RoS3pTPqRJItxGFmL907x6 gun9vywuJncGU9XXUqCRX4 FYmbrbMcuuV4OVfgcQWjHp B5VVaaqjNsOOiipoGhklQl Dyi3ZIVcL907OPN1wBuph2 nlXSH8UJXhXPJbPgOrKa7b uFWtL761TLWuDTTHQVYwjA y5REXipbVgshKpaTVGw139 Z381c0qzBGKntaRvfFyBow wfh6snF063ZEVfuGHdwtRw UrQaWQHusOUvlDD8ZBNlSB 7slpigWqKyCG5ukcuyQrNo UI9ebwp9WeJtXP5egcalNp CiYFmcDBAfoqgyOQEac0Iq nydgWT9eJ0Mee5L6vZ4xfS PzNRAmkLSnHiOxNONydm0u iTRtPYyal6WqZDC4hpS5nM TosJEnCHCyVT41Usdik8Ed LuetKZM5XXOrveHqz1Dfo0 mpUiVgsvSbD7xpA5LlOKEb XQXqZRLqXuIvhmKyi3Wwb2 LmaEStdNf7z8tmUOMhDDLz gDlpx4ooONN1ZREvP5N4kG Ubw4zxFRcdPOTguBF9javp EXnbAJWdgdT9vygwNPmaNN YxaQD3zekqQFknTFCxCnA9 yuszLLaoZXIjSPN6VJaqx1 65FUZ5XXeaCbksJJbhQGTq bmNvbnRccGduZGVjXHBsYW luXHBsYWluXGYwXGZzMjRc tGyadJmvoQ3hUvQePiEgMQ rqGU0yHCYbP6ttnQSoXXAd TTQcR7zbSmJhuW3fcBrjLB xmczIwIEEuICBSZWNlaXZl KYRfpcRsy1AdUJvzodDsWZ YwgVXmJWUjNFGaVZCyJZ81 T2DjrqBwORryRCRbAZMrzR 0rRX95kGUqumEwxxMbYrwx pgEcdS4pAMClAER1QEFlom 0nhL0xKDBdv6T2CGSuyvDk tCEyjZAvnEWpc4DtsJ2bTV VwIHRvIDAuMyBjbSBpbiBn dvZipDWghIEouW4ncbDus4 7wu9mhA3yjXWOaGIDufWZc dbRyDOUjSMKxyFWpwRV9UC JyhJ7cwH09emYuekICXJ8f cGFyXHBhciBCLiAgUmVjZW u2JEQfcA9qTe9soLCvfJ6z nDCcFNrxXMM1nFSyiEH7qA TwnJbuGH7gpIKdLZRkX4Ou e2mnfzRztC2xPYLmXJ6eXP Fiv2CsqeHrrhxmG37cw05i OMIkAJU6HBRzdn5vmY0xZZ Riw6N0IIReyiDcxRRecDOk fULnz7CtdI7dIXXfAAEwEI AuMiBjbSBpbiBncmVhdGVz dSPumG6jiiOxi92mp0mrX4 ggYXJlIGZpbHRlcmVkIGFu AJQggKJusKN8SVYouN1sxY 30gxKdcsLSMN9txVWtEUGf mlQFLwRiAbTuIPf6WCVcfV 9uTf5jwIVytG3ucBGrRLjq XLS7jWRnpSI9iKNpwJebVQ 0jfPClQFHnE0Rpa5hquuTy kV2kRZAaNR3bXKSiTHCqWP 0qkT9lGHAgvX8pPWCvihLc XfG0JO5oiHjsiaC5cMAzuL WsMqScP24ggsOlUN3rTDE1 otqnMsG9tGG9oxIlAtXtC8 6iwL1hE8FeZEVku0ZzBWpu OX4bqT0cAPbuyUGpCABqEC TncKo2AGZkDTMeudIgi6Hj gCf7vPUfIVbmGVWrwF0hiT 4gQzEuXHBhclxwYXIgUGls YXIgQXJndWVsbGVzLCBQQS ckIPMqOWZYU8JhZHTkdb5= MICROSCOPIC DESCRIPTION e9ypfSPwXLDlrCG8LzZqUR (test code = 3371) Gen1hax2DnyIMroXEtTXne tTMlshOxjq74sSI4nL34HF 9qKKHqXzR3SSMlgeD3Ezp5 JUJsHPZzpQGwZ980z8hxf3 pivkCikAF1aBygYUFaNWDr YWluXGZzMjAgVGhlIHNlY3 Jhi89sHQIic4ypU32ij06p MxOwdYCcd5Que8v8nVAmpm NyZWFzZWQgIGludHJhZXBp jZlkiHcogGAwqD4efF0xrU Plgm9xPRMJifTjfIEzT3F1 ndIjPYvxmU0ktQdzbvSfko Sxl7RupFSgl6NmiW2eVv9y nVsmC2levwVqDUVltRyxD2 VuIGJhbmQgaXMgYXBwYXJl wjIwPrQid6cviWxaNFNeiR ZjRPgglI3mFF2mWJgnJU01 wO7nLVZtOLCfaZZ9kZAcef CtCDJ3x0LpPROdICDikjGc UArlL17ekeK6DD3kdZGiJc xwYXJccGFyfQ== [facility] CenterT[facility] [id number] 20:17:00Surgical Pathology Report Case: [id number] Authorizing Provider: Godwin Colunga Collected: 04/01/2021 05:01 PM Ordering Location: [address] Received: 04/02/2021 09:05 AM Service Pathologist: Jazmine Huitron MD Specimens: A) -Biopsy, Jejunum, talisha limb random biopsies B) - Large Intestine, Colon - Right/Ascending, random biopsies R/O microscopic colitis C) - Large Intestine, Colon - Left/Descending, random biopsies A. JEJUNUM, TALISHA LIMB, ENDOSCOPIC BIOPSY: - SMALL BOWEL MUCOSA WITH NO PATHOLOGIC ALTERATION - NO BLUNTED VILLI, GRANULOMAS, DYSPLASIA OR MALIGNANCY SEENB. COLON, RIGHT/ASCENDING, RANDOM, ENDOSCOPIC BIOPSY: - COLONIC MUCOSA WITH INCREASED INTRAEPITHELIAL LYMPHOCYTES (SEE COMMENT) - NO SIGNIFICANT ARCHITECTURAL DISTORTION SEEN - NO VIRAL INCLUSIONS, GRANULOMAS, DYSPLASIA OR MALIGNANCY PRESENT C. COLON, LEFT/DESCENDING, RANDOM, ENDOSCOPIC BIOPSY: - COLONIC MUCOSA WITH INCREASED INTRAEPITHELIAL LYMPHOCYTES (SEE COMMENT) - NO SIGNIFICANT ARCHITECTURAL DISTORTION SEEN - NO VIRAL INCLUSIONS, GRANULOMAS, DYSPLASIA OR MALIGNANCY PRESENT Signing Pathologist Direct Phone Line: [phone] signed by Jazmine Huitron MD on 04/02/2021 at 8:17 PMThese features may be due to lymphocytic colitis, drug induced or infections among other causes. Clinical correlation is recommended. [id number] x 3Diarrhea A. JejunumB. Ascending colonC. Descending colonA. Received in formalin labeled the patient's name, accession number and "jejunum" are 4 miranda- pink tissue fragments measuring up to 0.3 cm in greatest dimension which are filtered and submitted in toto in A1.B. Received in formalin labeled the patient's name, accession number and "ascending colon" are 4 miranda-pink tissue fragments measuring up to 0.2 cm in greatest dimension which are filtered and submitted in toto in B1.C. Received in formalin labeled the patient's name, accession number and "descending colon "are 3 miranda-pink tissue fragments measuring up to 0.2 cm in greatest dimension which are filtered and submitted in toto in C1.AUGUSTO Kirk, HT (ASCP)The sections show colonic mucosa with increased intraepithelial lymphocytes. Architecture distortion is not present. No thickened collagen band is apparent below the epithelium. No granulomas, cryptitis , dysplasia or malignancy noted.RAD, CHEST, 1 VIEW, NON [id number] 15:23:00Reason for exam:->SOBShould this be performed at the bedside?->YesH[facility] : 1945 Sex: FFINAL REPORT INDICATION: SOB COMPARISON: None TECHNIQUE: Single frontal view of the chest. FINDINGS: Lungs and pleura: Clear lungs. No effusion.Heart and mediastinum: Normal heart size. Unremarkable mediastinal contours.Osseous structures: No acute abnormality.Other: None. IMPRESSION: No acute intrathoracic abnormality. Signed: Angelica Jallohtevin Verified Date/Time: 04/02/2021 15:23:49 Reading Location: [facility] Radiology Reading Room XR chest 1 view portable / [id number] 15:23:00 Interface, External Ris In - 04/02/2021 3:28 PM CDTFINAL REPORT INDICATION: SOB COMPARISON: None TECHNIQUE: Single frontal view of the chest. FINDINGS: Lungs and pleura: Clear lungs. No effusion.Heart and mediastinum: Normal heart size. Unremarkable mediastinal contours.Osseous structures: No acute abnormality.Other: None. IMPRESSION: No acute intrathoracic abnormality. Signed: Angelica Jalloh Verified Date/Time: 04/02/2021 15:23:49 Reading Location: [facility] Radiology Reading [facility] Reflex to [id number] 14:50:00 Test Item Value Reference Range Interpretation Comments Color, UA (test Light Yellow code = 5778-6) Clarity, UA (test Clear code = 5767-9) Specific Belden, 1.010 1.001-1.035 UA (test code = 5811-5) pH, UA (test code 6.0 5.0-8.0 = 5803-2) Protein, UA (test Negative Negative code = 22314-3) Glucose, UA (test Negative Negative code = 365) Ketones, UA (test Negative Negative code = 2514-8) Bilirubin, UA Negative Negative (test code = 43089-7) Blood, UA (test Negative Negative code = 87942-2) Nitrite, UA (test Negative Negative code = 5802-4) Leukocytes, UA Negative Negative (test code = 5799-2) Urobilinogen, UA 0.2 mg/dL 0.2-1 (test code = 75113-5) RBC, UA (test 1 See_Comment [Automated code = 64409-9) message] The system which generated this result transmitted reference range : /HPF. The refer ence range was not u sed to interpret th is result as normal/abnormal . WBC, UA (test 2 See_Comment [Automated code = 5821-4) message] The system which generated this result transmitted reference range : /HPF. The refer ence range was not u sed to interpret th is result as normal/abnormal . Bacteria, UA Occasional (test code = 47627-4) Mucus (test code Many = 8247-9) Squam Epithel, UA <1 See_Comment [Automate d (test code = message] The sy stem 42795-6) which generated this result transmitted reference range : /HPF. The refer ence range was not u sed to interpret th is result as normal/abnormal . Crystals, Urine None Seen (test code = 53962-8) Specimen Source (test code = 2795) GABRIEL (test code = Sales Correspondence Clerk ID - GABRIEL) [auto]Sales Correspondence Clerk ID - [facility] [id number] 14:50:00 Test Item Value Reference Range Interpretation Comments COLOR (BEAKER) (test code = 470) Light Yellow CLARITY (BEAKER) (test code = Clear 469) SPECIFIC GRAVITY UA (BEAKER) 1.010 1.001-1.035 (test code = 468) PH UA (BEAKER) (test code = 467) 6.0 5.0-8.0 PROTEIN UA (BEAKER) (test code = Negative Negative 464) GLUCOSE UA (BEAKER) (test code = Negative Negative 365) KETONES UA (BEAKER) (test code = Negative Negative 371) BILIRUBIN UA (BEAKER) (test code Negative Negative = 462) BLOOD UA (BEAKER) (test code = Negative Negative 461) NITRITE UA (BEAKER) (test code = Negative Negative 465) LEUKOCYTE ESTERASE UA (BEAKER) Negative Negative (test code = 466) UROBILINOGEN UA (BEAKER) (test 0.2 mg/dL 0.2-1.0 code = 463) RBC UA (BEAKER) (test code = 1 /HPF 519) WBC UA (BEAKER) (test code = 2 /HPF 520) BACTERIA (BEAKER) (test code = Occasional 517) MUCUS (BEAKER) (test code = Many 1574) SQUAMOUS EPITHELIAL (BEAKER) < /HPF (test code = 516) CRYSTALS, URINE (BEAKER) (test None Seen code = 1521) SOURCE(BEAKER) (test code = 2795) Sales Correspondence Clerk ID - [auto]Sales Correspondence Clerk ID - techOva and Parasite [id number] 09:36:00 Test Item Value Reference Range Interpretation Comments O&P Direct Smear (test No ova or parasites No ova or code = 18993-9) seen parasites seen GABRIEL (test code = GABRIEL) See scanned report Lab Interpretation (test Normal code = 21811-5) [facility] [id number] 09:36:00 Test Item Value Reference Range Interpretation Comments DIRECT SMEAR - No ova or parasites No ova or parasites O\\T\\P (BEAKER) seen seen (test code = 196) See scanned reportBLOOD [id number] 02:00:00 Test Item Value Reference Range Interpretation Comments CULTURE (BEAKER) (test No growth in 5 days code = 1095) BLOOD [id number] 02:00:00 Test Item Value Reference Range Interpretation Comments CULTURE (BEAKER) (test No growth in 5 days code = 1095) BASIC METABOLIC [id number] 07:22:00 Test Item Value Reference Range Interpretation Comments SODIUM (BEAKER) 140 meq/L 136-145 (test code = 381) POTASSIUM (BEAKER) 3.0 meq/L 3.5-5.1 L (test code = 379) CHLORIDE (BEAKER) 109 meq/L 98-107 H (test code = 382) CO2 (BEAKER) (test 23 meq/L 22-29 code = 355) BLOOD UREA NITROGEN 8 mg/dL 7-21 (BEAKER) (test code = 354) CREATININE (BEAKER) 0.63 mg/dL 0.57-1.25 (test code = 358) GLUCOSE RANDOM 81 mg/dL 70-105 (BEAKER) (test code = 652) CALCIUM (BEAKER) 7.7 mg/dL 8.4-10.2 L (test code = 697) EGFR (BEAKER) (test 91 mL/min/1.73 ESTIMA REGINA GFR IS code = 1092) sq m NOT ACCURATE CREATININE CLEARANCE IN PREDICTING GLOMERULAR FILTRATION RATE . ESTIMATED GFR I S NOT APPLICABLE FOR DIALYSIS PATIEN TS. Sales Correspondence Clerk ID - BART VARGASepatic function [id number] 07:18:00 Test Item Value Reference Range Interpretation Comments Protein, Total (test 5.2 See_Comment L [Autom ated code = 2885-2) message] The system which generated this result transmit regina reference range : 6.0 - 8.3 gm/dL . The reference range was not u sed to interpret th is result as normal/abnormal . Albumin (test code = 2.4 g/dL 3.5-5 L 24988-3) Total Bilirubin (test 0.3 mg/dL 0.2-1.2 code = 1975-2) Bilirubin, Direct 0.2 mg/dL 0.1-0.5 (test code = 1968-7) Alkaline Phosphatase 147 U/L 40-150 (test code = 6768-6) AST (test code = 25 U/L 5-34 1920-8) ALT (test code = 52 U/L 6-55 1742-6) GABRIEL (test code = GABRIEL) Sales Correspondence Clerk ID - BART [facility] Interpretation Abnormal (test code = 88319-3) [facility] Center[facility]AT[facility] [id number] 07:18:00 Test Item Value Reference Range Interpretation Comments TOTAL PROTEIN (BEAKER) (test code = 5.2 gm/dL 6.0-8.3 L 770) ALBUMIN (BEAKER) (test code = 1145) 2.4 g/dL 3.5-5.0 L BILIRUBIN TOTAL (BEAKER) (test code 0.3 mg/dL 0.2-1.2 = 377) BILIRUBIN DIRECT (BEAKER) (test 0.2 mg/dL 0.1-0.5 code = 706) ALKALINE PHOSPHATASE (BEAKER) (test 147 U/L 40-150 code = 346) AST (SGOT) (BEAKER) (test code = 25 U/L 5-34 353) ALT (SGPT) (BEAKER) (test code = 52 U/L 6-55 347) Sales Correspondence Clerk ID - BART [facility] W/PLT COUNT & AUTO [id number] 05:59:00 Test Item Value Reference Range Interpretation Comments WHITE BLOOD CELL COUNT (BEAKER) 7.0 K/ L 3.5-10.5 (test code = 775) RED BLOOD CELL COUNT (BEAKER) 3.98 M/ L 3.93-5.22 (test code = 761) HEMOGLOBIN (BEAKER) (test code = 11.1 GM/DL 11.2-15.7 L 410) HEMATOCRIT (BEAKER) (test code = 35.8 % 34.1-44.9 411) MEAN CORPUSCULAR VOLUME (BEAKER) 89.9 fL 79.4-94.8 (test code = 753) MEAN CORPUSCULAR HEMOGLOBIN 27.9 pg 25.6-32.2 (BEAKER) (test code = 751) MEAN CORPUSCULAR HEMOGLOBIN CONC 31.0 GM/DL 32.2-35.5 L (BEAKER) (test code = 752) RED CELL DISTRIBUTION WIDTH 16.8 % 11.7-14.4 H (BEAKER) (test code = 412) PLATELET COUNT (BEAKER) (test 262 K/CU MM 150-450 code = 756) MEAN PLATELET VOLUME (BEAKER) 8.4 fL 9.4-12.3 L (test code = 754) NUCLEATED RED BLOOD CELLS 0 /100 WBC 0-0 (BEAKER) (test code = 413) NEUTROPHILS RELATIVE PERCENT 65 % (BEAKER) (test code = 429) LYMPHOCYTES RELATIVE PERCENT 21 % (BEAKER) (test code = 430) MONOCYTES RELATIVE PERCENT 9 % (BEAKER) (test code = 431) EOSINOPHILS RELATIVE PERCENT 4 % (BEAKER) (test code = 432) BASOPHILS RELATIVE PERCENT 0 % (BEAKER) (test code = 437) NEUTROPHILS ABSOLUTE COUNT 4.52 K/ L 1.56-6.13 (BEAKER) (test code = 670) LYMPHOCYTES ABSOLUTE COUNT 1.49 K/ L 1.18-3.74 (BEAKER) (test code = 414) MONOCYTES ABSOLUTE COUNT (BEAKER) 0.61 K/ L 0.24-0.36 H (test code = 415) EOSINOPHILS ABSOLUTE COUNT 0.29 K/ L 0.04-0.36 (BEAKER) (test code = 416) BASOPHILS ABSOLUTE COUNT (BEAKER) 0.03 K/ L 0.01-0.08 (test code = 417) IMMATURE GRANULOCYTES-RELATIVE 1 % 0-1 PERCENT (BEAKER) (test code = 2801) MR, ABDOMEN, [id number] 09:35:00MRCP needed.Unlisted Reason for Exam - Click Yes and Enter Reason Below->YesUnlisted Reason for Exam->ALSO WITH MRCP - biliary ductal dilation [facility] 1945 Sex: FFINAL REPORT TECHNIQUE: MRI of the abdomen and MRCP WITHOUT and WITH intravenous contrast. 3-D volume reconstructions were obtained to evaluate the biliary ductal system. INDICATION: Unlisted Reason for ExamALSO WITH MRCP - biliary ductal dilation. COMPARISON: None. FINDINGS:LOWER THORAX: Mild bibasilar atelectasis. LIVER: No hepatic signal abnormality. No focal hepatic lesions. BILIARY: Prior cholecystectomy. The common bile duct is dilated up to 1.5 cm in diameter. The common hepatic duct measures 0.7 cm in diameter, and there is moderate intrahepatic biliary ductal dilation.SPLEEN: No splenomegaly. The spleen measures 11.9 cm in length.PANCREAS: No focal masses or ductal dilatation. A cystic lesion in the pancreatic tail measures 2.3 cm and appears to connect the main pancreatic duct. ADRENALS: No adrenal nodules.KIDNEYS/URETERS: No hydronephrosis or solid mass lesions. There are parapelvic left renal cysts. No routine follow-up imaging is recommended. A left lowerpole simple renal cyst measures 0.3 cm. PERITONEUM/RETROPERITONEUM: No free fluid.LYMPH NODES: No lymphadenopathy.VESSELS: Conventional hepatic arterial anatomy. Mild atherosclerosis of the infrarenal abdominal aorta. 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 No distention or wall thickening. BONES AND SOFT TISSUES: A cystic lesion and this indicates tissues of the left back measures 1.8 cm and is most consistent with either an epidermal inclusion or sebaceous cyst. Leftward convex curvature of the lumbar spine. Diffuse anasarca. IMPRESSION: 1.There is moderate intrahepatic and extrahepatic biliary ductal dilation. No definite cause for obstruction is identified. While this could be due to reservoir effect from the prior cholecystectomy, the degree of dilation is atypical. Consider either an ERCP or a short-term follow-up MRCP for further evaluation. 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 Providing the recent outside hospital CT would be helpful for comparison. 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 A follow- up MRI of the abdomen with and without intravenous contrast with MRCP is recommended in one year to document stability. Signed: Wayne Ibarra MDReport Verified Date/Time: 03/31/2021 09:35:10 Reading Location: [facility] Ortho Consult Reading Room MR abdomen without & with IV [id number] 09:35:00 Interface, External Ris In - 03/31/2021 9:37 AM CDTFINAL REPORT TECHNIQUE: MRI of the abdomen and MRCP WITHOUT and WITH intravenous contrast. 3-D volume reconstructions were obtained to evaluate the biliary ductal system. INDICATION: Unlisted Reason for ExamALSO WITH MRCP - biliary ductal dilation. COMPARISON: None. FINDINGS: LOWER THORAX: Mild bibasilar atelectasis. LIVER: No hepatic signal abnormality. No focal hepatic lesions. BILIARY: Prior cholecystectomy. The common bile duct is dilated up to 1.5 cm in diameter. The common hepatic duct measures 0.7 cm in diameter, andthere is moderate intrahepatic biliary ductal dilation.SPLEEN: No splenomegaly. The spleen measures 11.9 cm in length.PANCREAS: No focal masses or ductal dilatation. A cystic lesion in the pancreatic tail measures 2.3 cm and appears to connect the main pancreatic duct. ADRENALS: No adrenal nodules.KIDN EYS/URETERS: No hydronephrosis or solid mass lesions. There are parapelvic left renal cysts. No routine follow-up imaging is recommended. A left lower pole simple renal cyst measures 0.3 cm. PERITONEUM/RETROPERITONEUM: No free fluid.LYMPH NODES: No lymphadenopathy.VESSELS: Conventional hepatic arterial anatomy. Mild atherosclerosis of the infrarenal abdominal aorta. 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 No distention or wall thickening. BONES AND SOFT TISSUES: A cystic lesion and this indicates tissues of the left back measures 1.8 cm and is most consistent with either anepidermal inclusion or sebaceous cyst. Leftward convex curvature of the lumbar spine. Diffuse anasarca. IMPRESSION: 1.There is moderate intrahepatic and extrahepatic biliary ductal dilation. No definite cause for obstruction is identified. While this could be due to reservoir effect from the prior cholecystectomy, the degree of dilation is atypical. Consider either an ERCP or a short-term follow-up MRCP for further evaluation. 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 Providing the recent outside hospital CT would be helpful for comparison. 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 Signed: Wayne Ibarra [facility] Verified Date/Time: 03/31/2021 09:35:10 Reading Location: [facility] [place] Reading Room [facility] culture + Shiga toxin 2021-03-31 07:58:00 Test Item Value Reference Range Interpretation Comments Result (test code = No Salmonella, Shigella or 6463-4) Campylobacter isolated GABRIEL (test code = GABRIEL) [facility] CULTURE + SHIGA [id number] 07:58:00 Test Item Value Reference Range Interpretation Comments CULTURE (BEAKER) No Salmonella, Shigella (test code = 1095) or Campylobacter isolated Shiga Toxin [id number] 14:41:00 Test Item Value Reference Range Interpretation Comments Shiga toxin 1 (test code = Not detected Not detected 40700-6) Shiga toxin 2 (test code = Not detected Not detected 47539-9) Lab Interpretation (test code = Normal 27490-4) [facility] [id number] 14:41:00 Test Item Value Reference Range Interpretation Comments SHIGA TOXIN 1 (BEAKER) (test Not detected Not detected code = 2177) SHIGA TOXIN 2 (BEAKER) (test Not detected Not detected code = 2179) STOOL PATH [id number] 12:25:00 Test Item Value Reference Range Interpretation Comments Pathogen exam charged (test code = Done 2381) [facility] [id number] 12:25:00 Test Item Value Reference Range Interpretation Comments PATHOGEN EXAM CHARGED (BEAKER) (test Done code = 2381) RAD, CHEST, 1 VIEW, NON [id number] 08:43:00Reason for exam:- >hypoxiaShould this be performed at the bedside?->Yes [facility] 1945 Sex: FFINAL REPORT CLINICAL HISTORY: hypoxia TECHNIQUE: 1 view of the chest. COMPARISON: None IMPRESSION: There is left lateral lung base retrocardiac opacity which could represent a pericardial fat pad, although a small left pleural effusion cannot be excluded. The right lung is free of infiltrates or effusions. There is no significant cardiomegaly. There are right upper quadrant surgical clips. Signed: Cindy Longo MDReport Verified Date/Time: 03/30/2021 08:43:23 Reading Location: [address] Neuro Reading Room Manual Differential 2021-03-29 12:20:00 Test Item Value Reference Range Interpretation Comments % Neutros (test code = 73 % 2816) % Lymphs (test code = 9 % 2817) % Monos (test code = 5 % 2818) % Eos (test code = 8 % 2819) % Bands (test code = 5 % 0-10 2826) # Neutros (test code = 4.82 K/ul 1.56-6.13 2830) # Lymphs (test code = 0.59 K/ul 1.18-3.74 L 2831) # Monos (test code = 0.33 K/uL 0.24-0.36 2832) # Eos (test code = 0.53 K/uL 0.04-0.36 H 2834) # Bands (test code = 0.33 K/uL 0-0.8 2840) Total Counted (test 100 code = 1351) WBC Morphology (test Normal code = 487) Platelet Morphology Normal (test code = 486) Anisocytosis (test code 1+ few = 961) Microcytes (test code = 1+ few 965) Poikilocytes (test code 1+ few = 966) Spherocytes (test code 1+ few = 768) Elliptocytes (test code 1+ few = 962) Artifact (test code = Present 3432) Platelet Conc (test Adequate code = 3438) GABRIEL (test code = GABRIEL) Sales Correspondence Clerk ID - Arti Ruby comments: Slide comments: Lab Interpretation Abnormal (test code = 80079-0) [facility] W/PLT COUNT & AUTO [id number] 12:20:00 Test Item Value Reference Range Interpretation Comments WHITE BLOOD CELL COUNT (BEAKER) 6.6 K/ L 3.5-10.5 (test code = 775) RED BLOOD CELL COUNT (BEAKER) 3.72 M/ L 3.93-5.22 L (test code = 761) HEMOGLOBIN (BEAKER) (test code = 10.6 GM/DL 11.2-15.7 L 410) HEMATOCRIT (BEAKER) (test code = 33.6 % 34.1-44.9 L 411) MEAN CORPUSCULAR VOLUME (BEAKER) 90.3 fL 79.4-94.8 (test code = 753) MEAN CORPUSCULAR HEMOGLOBIN 28.5 pg 25.6-32.2 (BEAKER) (test code = 751) MEAN CORPUSCULAR HEMOGLOBIN CONC 31.5 GM/DL 32.2-35.5 L (BEAKER) (test code = 752) RED CELL DISTRIBUTION WIDTH 17.1 % 11.7-14.4 H (BEAKER) (test code = 412) PLATELET COUNT (BEAKER) (test 243 K/CU MM 150-450 code = 756) MEAN PLATELET VOLUME (BEAKER) 9.1 fL 9.4-12.3 L (test code = 754) NUCLEATED RED BLOOD CELLS 0 /100 WBC 0-0 (BEAKER) (test code = 413) (CELLAVISION MANUAL DIFF)2021-03-29 12:20:00 Test Item Value Reference Range Interpretation Comments NEUTROPHILS - REL 73 % (CELLAVISION)(BEAKER) (test code = 2816) LYMPHOCYTES - REL 9 % (CELLAVISION)(BEAKER) (test code = 2817) MONOCYTES - REL 5 % (CELLAVISION)(BEAKER) (test code = 2818) EOSINOPHILS - REL 8 % (CELLAVISION)(BEAKER) (test code = 2819) BANDS - REL (CELLAVISION)(BEAKER) 5 % 0-10 (test code = 2826) NEUTROPHILS - ABS 4.82 K/ul 1.56-6.13 (CELLAVISION)(BEAKER) (test code = 2830) LYMPHOCYTES - ABS 0.59 K/ul 1.18-3.74 L (CELLAVISION)(BEAKER) (test code = 2831) MONOCYTES - ABS 0.33 K/uL 0.24-0.36 (CELLAVISION)(BEAKER) (test code = 2832) EOSINOPHILS - ABS 0.53 K/uL 0.04-0.36 H (CELLAVISION)(BEAKER) (test code = 2834) BANDS - ABS (CELLAVISION)(BEAKER) 0.33 K/uL 0.00-0.80 (test code = 2840) TOTAL COUNTED (BEAKER) (test code = 100 1351) WBC MORPHOLOGY (BEAKER) (test code Normal = 487) PLT MORPHOLOGY (BEAKER) (test code Normal = 486) ANISOCYTOSIS (BEAKER) (test code = 1+ few 961) MICROCYTES (BEAKER) (test code = 1+ few 965) POIKILOCYTES (BEAKER) (test code = 1+ few 966) SPHEROCYTES (BEAKER) (test code = 1+ few 768) ELLIPTOCYTES (BEAKER) (test code = 1+ few 962) ARTIFACT (CELLAVISION)(BEAKER) Present (test code = 3432) PLATELET CONCENTRATION Adequate (CELLAVISION)(BEAKER) (test code = 3438) Sales Correspondence Clerk ID - Arti Beltran comments: Slide comments:BASIC METABOLIC [id number] 07:33:00 Test Item Value Reference Range Interpretation Comments SODIUM (BEAKER) 141 meq/L 136-145 (test code = 381) POTASSIUM (BEAKER) 3.0 meq/L 3.5-5.1 L (test code = 379) CHLORIDE (BEAKER) 111 meq/L 98-107 H (test code = 382) CO2 (BEAKER) (test 23 meq/L 22-29 code = 355) BLOOD UREA NITROGEN 16 mg/dL 7-21 (BEAKER) (test code = 354) CREATININE (BEAKER) 0.70 mg/dL 0.57-1.25 (test code = 358) GLUCOSE RANDOM 93 mg/dL 70-105 (BEAKER) (test code = 652) CALCIUM (BEAKER) 7.7 mg/dL 8.4-10.2 L (test code = 697) EGFR (BEAKER) (test 81 mL/min/1.73 ESTIMA REGINA GFR IS code = 1092) sq m NOT ACCURATE CREATININE CLEARANCE IN PREDICTING GLOMERULAR FILTRATION RATE . ESTIMATED GFR I S NOT APPLICABLE FOR DIALYSIS PATIEN TS. Sales Correspondence Clerk ID - BART EPATIC FUNCTION [id number] 07:20:00 Test Item Value Reference Range Interpretation Comments TOTAL PROTEIN (BEAKER) (test code = 4.7 gm/dL 6.0-8.3 L 770) ALBUMIN (BEAKER) (test code = 1145) 2.3 g/dL 3.5-5.0 L BILIRUBIN TOTAL (BEAKER) (test code 0.3 mg/dL 0.2-1.2 = 377) BILIRUBIN DIRECT (BEAKER) (test 0.2 mg/dL 0.1-0.5 code = 706) ALKALINE PHOSPHATASE (BEAKER) (test 200 U/L 40-150 H code = 346) AST (SGOT) (BEAKER) (test code = 31 U/L 5-34 353) ALT (SGPT) (BEAKER) (test code = 129 U/L 6-55 H 347) Sales Correspondence Clerk ID - BART MClostridium difficile GDH [id number] 16:16:00 Test Item Value Reference Range Interpretation Comments C. Difficle Toxin Negative Negative (test code = 6178921602) C. Difficile GDH Positive Negative A C. difficil e Antigen (test code = present but toxin [id number]) not detected. Indicates colonization wi th non-toxigenic strain or level of toxin below detectable levels. No nee d for enteric isolation. Treatment is rarely needed (only when stro ng clinical suspicion for Clostridium difficile infection) GABRIEL (test code = Testing performed GABRIEL) by [employer] Rapid Cassette Assay. For GDH, published sensitivity of the assay is 98.7% compared to cytotoxicity testing. For Toxin AB, published sensitivity is 87.8% and specificity 99.4% compared to cytotoxicity testing.Verificati on of kit performance was done by the [facility] Microbiology Lab prior to clinical use. Lab Interpretation Abnormal (test code = 95923-9) [facility] GDH [id number] 16:16:00 Test Item Value Reference Range Interpretation Comments CDT TOXIN (test code Negative Negative = [id number]) CDT GDH ANTIGEN Positive Negative A C. difficile present but (test code = toxin not detec regina. 0808076770) Indicates colon ization with non-toxige antelmo strain or level of tox in below detectable leve ls. No need for enteri c isolation. Alexys atment is rarely needed ( only when strong clinical suspicion for Clostridium difficile infection) Testing performed by Alere Rapid Cassette Assay. For GDH, published sensitivity of the assay is 98.7% compared to cytotoxicity testing. For Toxin AB, published sensitivity is 87.8% and specificity 99.4% compared to cytotoxicity testing.Verification of kit performance was done by the [facility] Microbiology Lab prior to clinical use.SARS-CoV2/RT-PCR (Asymptomatic ONLY)2021-03-28 07:38:00 Test Item Value Reference Range Interpretation Comments SARS-COV2/RT-PCR Negative Not Detected, (test code = Negative, See 91357-7) external report for linked test SARS-COV-2 [facility] PERFORMING LAB (test code = 98632-8) GABRIEL (test code = Negative result for this GABRIEL) test determines that SARS-CoV-2 RNA was not present in the specimen above the Limit of Detection (LOD). However, Negative results do not preclude SARS-CoV-2 infection and should not be used as the sole basis for treatment or patient management decisions. Negative results must be combined with clinical observations, patient history, and epidemiological information. A false negative result may occur if a specimen is improperly collected, transported or handled. A false negative result should be considered if patient's recent exposures or clinical presentation indicate that COVID-19 (SARS-CoV-2) is likely and diagnostic tests for other causes of illness are negative. Re-testing should be considered in cases of suspected false negatives. The limit of detection for this assay is 800 copies/mL. This SARS CoV-2 test is a real-time RT-PCR test intended for the qualitative detection of nucleic acid from SARS-CoV-2 in a nasopharyngeal swab specimen collected from individuals suspected of COVID-19 by their healthcare provider. This test has not been Food and Drug Administration (FDA) cleared or approved. This is a modified version of an approved Emergency Use Authorization (EUA) and is in the process of review by the FDA. Once authorized by the FDA, the issued EUA will be effective until the declaration that circumstances exist justifying the authorization of the emergency use of in vitro diagnostic tests for detection and/or diagnosis of COVID-19 is terminated under Section 564(b)(2) of the Act or the EUA is revoked under Section 564(g) of the Act. Fact Sheet for Healthcare Providers:https://www.[employer]/sites/default/f fidencio/product/documents/F act_Sheet_HC_Providers_L gaq_PKUT-FgJ-9.pdf Fact Sheet for Healthcare Patients:https://www.[employer].com/sites/default/fi les/product/documents/Fa ct_Sheet_Patients_Lyra_S ARS-CoV-2.pdf Performing Laboratory:[facility] [place] [address] [facility] ([facility])2021-03-28 07:38:00 Test Item Value Reference Range Interpretation Comments SARS-COV2/RT-PCR (test Negative Not Detected, Negative, code = 0596125) See external report for linked test SARS-COV-2 PERFORMING LAB [facility] (test code = 3350204) Negative result for this test determines that SARS-CoV-2 RNA was not present in the specimen above the Limit of Detection (LOD). However, Negative results do not preclude SARS-CoV-2 infection and should not be used as the sole basis for treatment or patient management decisions. Negative results mustbe combined with clinical observations, patient history, and epidemiological information. A false negative result may occur if a specimen is improperly collected, transported or handled. A false negative result should be considered if patient's recent exposures or clinical presentation indicate that COVID-19 (SARS-CoV-2) is likely and diagnostic tests for other causes of illness are negative. Re-testing should be considered in cases of suspected false negatives.The limit of detection for this assay is 800 copies/mL.This SARS CoV-2 test is a real-time RT-PCR test intended for the qualitative detection of nucleic acid from SARS-CoV-2 in a nasopharyngeal swab specimen collected from individuals susp ected of COVID-19 by their healthcare provider.This test has not been Food and Drug Administration (FDA) cleared or approved. This is a modified version of an approved Emergency Use Authorization (EUA) and is in the process of review by the FDA. Once authorized by the FDA, the issued EUA will be effective until the declaration that circumstances exist justifying the authorization of the emergency use of in vitro diagnostic tests for detection and/or diagnosis of COVID-19 is terminated under Section 564(b)(2) of the Act or the EUA is revoked under Section 564(g) of the Act.Fact Sheet for Healthcare Providers:https://www.[employer]/sites/default/files/product/documents/Fact_Shee o_[place]_Bmbvpckpx_Nrep_KXUR-CoF-4.pdfFact Sheet for Healthcare Patients:https://www.[employer]/sites/default/files/product/ documents/Flxg_Oybgu_Ncmbmayk_Wtug_LOXR-DxZ-3.pdfPerforming Laboratory:[facility], [place] [address]Njldze acid, venous 2021-03-28 04:43:00 Test Item Value Reference Range Interpretation Comments Lactate, Venous (test 1.47 mmol/L 0.5-2.2 code = 2872) GABRIEL (test code = GABRIEL) Sales Correspondence Clerk ID - DBOperator ID - DBOperator ID - DBOperator ID - DB Lab Interpretation (test Normal code = 85723-4) [facility] CenterLACT[facility] ACID, [id number] 04:43:00 Test Item Value Reference Range Interpretation Comments LACTATE BLOOD VENOUS (2) (BEAKER) 1.47 mmol/L 0.50-2.20 (test code = 2872) Sales Correspondence Clerk ID - DBOperator ID - DBOperator ID - DBOperator ID - DB(CELLAVISION MANUAL DIFF)2021-03-28 03:21:00 Test Item Value Reference Range Interpretation Comments NEUTROPHILS - REL 63 % (CELLAVISION)(BEAKER) (test code = 2816) LYMPHOCYTES - REL 14 % (CELLAVISION)(BEAKER) (test code = 2817) MONOCYTES - REL 1 % (CELLAVISION)(BEAKER) (test code = 2818) EOSINOPHILS - REL 2 % (CELLAVISION)(BEAKER) (test code = 2819) BANDS - REL (CELLAVISION)(BEAKER) 20 % 0-10 H (test code = 2826) NEUTROPHILS - ABS 4.41 K/ul 1.56-6.13 (CELLAVISION)(BEAKER) (test code = 2830) LYMPHOCYTES - ABS 0.98 K/ul 1.18-3.74 L (CELLAVISION)(BEAKER) (test code = 2831) MONOCYTES - ABS 0.07 K/uL 0.24-0.36 L (CELLAVISION)(BEAKER) (test code = 2832) EOSINOPHILS - ABS 0.14 K/uL 0.04-0.36 (CELLAVISION)(BEAKER) (test code = 2834) BANDS - ABS (CELLAVISION)(BEAKER) 1.40 K/uL 0.00-0.80 H (test code = 2840) TOTAL COUNTED (BEAKER) (test code = 100 1351) SMUDGE CELLS (BEAKER) (test code = Present 1371) GIANT PLATELETS (BEAKER) (test code Present = 313) POIKILOCYTES (BEAKER) (test code = 1+ few 966) SCHISTOCYTES (BEAKER) (test code = 1+ few 765) ARMANDO CELLS (BEAKER) (test code = 1+ few 474) PLATELET CONCENTRATION Adequate (CELLAVISION)(BEAKER) (test code = 3438) Sales Correspondence Clerk ID - Latrice Loza Che comments: Slide comments:CBC W/PLT COUNT & AUTO [id number] 03:21:00 Test Item Value Reference Range Interpretation Comments WHITE BLOOD CELL COUNT (BEAKER) 7.0 K/ L 3.5-10.5 (test code = 775) RED BLOOD CELL COUNT (BEAKER) 4.00 M/ L 3.93-5.22 (test code = 761) HEMOGLOBIN (BEAKER) (test code = 11.4 GM/DL 11.2-15.7 410) HEMATOCRIT (BEAKER) (test code = 36.5 % 34.1-44.9 411) MEAN CORPUSCULAR VOLUME (BEAKER) 91.3 fL 79.4-94.8 (test code = 753) MEAN CORPUSCULAR HEMOGLOBIN 28.5 pg 25.6-32.2 (BEAKER) (test code = 751) MEAN CORPUSCULAR HEMOGLOBIN CONC 31.2 GM/DL 32.2-35.5 L (BEAKER) (test code = 752) RED CELL DISTRIBUTION WIDTH 17.4 % 11.7-14.4 H (BEAKER) (test code = 412) PLATELET COUNT (BEAKER) (test 251 K/CU MM 150-450 code = 756) MEAN PLATELET VOLUME (BEAKER) 9.3 fL 9.4-12.3 L (test code = 754) NUCLEATED RED BLOOD CELLS 0 /100 WBC 0-0 (BEAKER) (test code = 413) Comprehensive metabolic [id number] 02:39:00 Test Item Value Reference Range Interpretation Comments Protein, Total (test 5.4 See_Comment L [Autom ated code = 2885-2) message] The system which generated this result transmit regina reference range : 6.0 - 8.3 gm/dL . The reference range was not u sed to interpret th is result as normal/abnormal . Albumin (test code = 2.6 g/dL 3.5-5 L 33889-9) Alkaline Phosphatase 252 U/L 40-150 H (test code = 6768-6) Total Bilirubin (test 0.4 mg/dL 0.2-1.2 code = 1975-2) Sodium (test code = 140 meq/L 924-539 6248-2) Potassium (test code 3.3 meq/L 3.5-5.1 L = 2823-3) Chloride (test code = 108 meq/L 98-107 H 2075-0) CO2 (test code = 22 meq/L 22-29 8-9) BUN (test code = 21 mg/dL 7-21 3094-0) Creatinine (test code 1.00 mg/dL 0.57-1.25 = 2160-0) Glucose (test code = 101 mg/dL 70-105 2345-7) Calcium (test code = 8.0 mg/dL 8.4-10.2 L 54761-9) AST (test code = 57 U/L 5-34 H 1920-8) ALT (test code = 210 U/L 6-55 H 1742-6) EGFR (test [place] = [place] [address]-5) CLINICAL DATA T O CALCULATE ESTIMATED GFR. GABRIEL (test code = GABRIEL) Sales Correspondence Clerk ID - DB Lab Interpretation Abnormal (test code = 60890-5) [facility] Center[facility]PRE[facility]ENSIVE METABOLIC [id number] 02:39:00 Test Item Value Reference Range Interpretation Comments TOTAL PROTEIN 5.4 gm/dL 6.0-8.3 L (BEAKER) (test code = 770) ALBUMIN (BEAKER) 2.6 g/dL 3.5-5.0 L (test code = 1145) ALKALINE PHOSPHATASE 252 U/L 40-150 H (BEAKER) (test code = 346) BILIRUBIN TOTAL 0.4 mg/dL 0.2-1.2 (BEAKER) (test code = 377) SODIUM (BEAKER) (test 140 meq/L 136-145 code = 381) POTASSIUM (BEAKER) 3.3 meq/L 3.5-5.1 L (test code = 379) CHLORIDE (BEAKER) 108 meq/L 98-107 H (test code = 382) CO2 (BEAKER) (test 22 meq/L 22-29 code = 355) BLOOD UREA NITROGEN 21 mg/dL 7-21 (BEAKER) (test code = 354) CREATININE (BEAKER) 1.00 mg/dL 0.57-1.25 (test code = 358) GLUCOSE RANDOM 101 mg/dL 70-105 (BEAKER) (test code = 652) CALCIUM (BEAKER) 8.0 mg/dL 8.4-10.2 L (test code = 697) AST (SGOT) (BEAKER) 57 U/L 5-34 H (test code = 353) ALT (SGPT) (BEAKER) 210 U/L 6-55 H (test code = 347) EGFR (BEAKER) (test INSUFFIC IENT CLINICAL code = 1092) DATA TO CALCULA TE ESTIMATED GFR. Sales Correspondence Clerk ID - [id number] 02:29:00 Test Item Value Reference Range Interpretation Comments MAGNESIUM (BEAKER) (test code = 1.7 mg/dL 1.6-2.6 627) Sales Correspondence Clerk ID - DBProthrombin time/[id number] 01:12:00 Test Item Value Reference Interpretation Comments Range Protime (test code = 15.7 See_Comment H [Autom ated 5902-2) message] The system which generated this result transmitted reference range : 11.9 - 14.2 seconds. The reference range was not used to interpret this result as normal/abnormal . INR (test code = 1.27 See_Comment [Automated 6301-6) message] The system which generated this result transmitted reference range : <=5.90. The reference range was not used to interpret this result as normal/abnormal . GABRIEL (test code = RECOMMENDED GABRIEL) COUMADIN/WARFARIN INR THERAPY RANGESSTANDARD DOSE: 2.0 - 3.0 Includes: PROPHYLAXIS for venous thrombosis, systemic embolization; TREATMENT for venous thrombosis and/or pulmonary embolus.HIGH RISK: Target INR is 2.5-3.5 for patients with mechanical heart valves. Lab Interpretation Abnormal (test code = 63233-4) [id number] 01:12:00 Test Item Value Reference Range Interpretation Comments PROTIME (BEAKER) 15.7 seconds 11.9-14.2 H (test code = 759) INR (BEAKER) (test 1.27 See_Comment [Automat ed message] code = 370) The system [employer] generated this result transmitted ref erence range: <=5.90. The reference range was not used to int erpret this result as normal/abnormal . RECOMMENDED COUMADIN/WARFARIN INR THERAPY RANGESSTANDARD DOSE: 2.0 - 3.0 Includes: PROPHYLAXIS forvenous thrombosis, systemic embolization; TREATMENT for venous thrombosis and/or pulmonary embolus.HIGH RISK: Target INR is 2.5-3.5 for patients with mechanical heart valves.ECG 12 [id number] 14:55:47 Test Item Value Reference Range Interpretation Comments Ventricular rate (test 80 code = 253) Atrial rate (test code 80 = 255) MA interval (test code 206 = 266) QRSD interval (test 96 code = 260) QT interval (test code 404 = 264) QTC interval (test code 465 = 265) P axis 1 (test code = 55 267) QRS axis 1 (test code = -52 268) T wave axis (test code 52 = 270) EKG impression (test Sinus rhythm with code = 273) premature atrial complexes with aberrant conduction-Left anterior fascicular block-Nonspecific ST abnormality-Abnormal ECG-In automated comparison with ECG of 29-JUL-2017 00:08,-aberrant conduction is now present-Nonspecific T wave abnormality now evident in Lateral leads- Tre FelicianoTransthoracic Echocardiogram Complete, (w Contrast, Strain and 3D if needed)2021-01-14 09:34:59 Test Item Value Reference Range Interpretation Comments Ao Root Diameter (test 2.97 cm code = 1885324256) AoV Area, Vmax (test 1.53 cm2 code = 6051806841) AoV Area, VTI (test 1.82 cm2 code = 8501646355) AoV Mean PG (test code 11.73 mmHg = 0889433735) AoV Peak PG (test code 13.09 mmHg = 9376611110) AoV Vmax (test code = 2.56 m/s 1534852783) AoV VTI (test code = 0.35 m 8249646682) IVS,d (test code = 1.37 cm 7356229887) IVS/LVPW,2D (test code 1.33 = 9152674080) Left Atrium Dimension 2.91 cm Anterior (test code = 7488682507) LV,d (test code = 4.28 cm 6771256356) LV EF,2D (test code = 74.43 % 5595120683) LV,s (test code = 2.72 cm 4266313686) LVOT area (test code = 2.06 cm2 8608685779) LVOT Diam,S (test code 1.62 cm = 2503448995) LVOT Vmax (test code = 1.35 m/s 4359327977) LVOT VTI (test code = 0.25 m 7448899578) LVPWD,d (test code = 1.03 cm 3601715116) PV Pk Grad (test code = 6.59 mmHg 7628621895) PV VMAX (test code = 1.28 m/s 2283474931) RVOT Vmax (test code = 0.84 m/s 4185161215) TR Vpeak (test code = 2.51 mm/s 7821389213) MV E A ratio (test code 0.66 = 6736146680) TR pk grad (test code = 18.11 mmHg 2684118147) MR Vmax (test code = 2.11 m/s 1756907073) MR peak grad (test code 16.98 mmHg = 2643075058) E wave decelartion time 189.03 msec (test code = 7914938460) MV Peak A Koby (test 1.24 m/s code = 1148830178) MV valve area p 1/2 4.01 cm2 method (test code = 5745094238) MV Peak E Koby (test 0.82 m/s code = 1148742073) MV stenosis pressure 54.82 ms 1/2 time (test code = 8555721358) LVOT stroke volume 0.52 cm3 (test code = 9477807830) AV LVOT peak gradient 7.24 mmHg (test code = 6107733362) Ascending aorta (test 3.44 cm code = 5074831659) Ao Root Diameter (test 2.97 cm code = 7836124333) LV SYS VOL (test code = 27.40 ml 3470815228) LV ROD VOL (test code 82.09 ml = 2904965872) LA area s A4C (test 18.07 cm2 code = 7759425725) LV SV Teich 2D (test 54.69 ml code = 6093766528) LV Vol s Teich PSAX 27.40 ml (test code = 7309340333) RVOT pk grad (test code 2.84 mmHg = 8029293404) AoV Vmn (test code = 1.61 0047619986) LV FS Teich 2D (test 36.53 code = 9586480224) MV AE ratio (test code 1.51 = 9647474695) LV FS Cube 2D (test 36.53 code = 2980613601) LVOT Vmn (test code = 0.98 5001932746) Aov area Vmn (test code 1.60 cm2 = 8402768906) LVOT mean grad (test 4.22 mmHg code = 0472712602) MAX Pred HR (test code 142.01 = 3005849766) 85 of MPHR (test code = 120.71 1940663495) Calc MPHR (test code = 142.01 bpm 3146637290) LV SV Cube 2D (test 58.30 ml code = 3614689190) LV vol d cube 2D (test 78.33 ml code = 7133406462) LV vol s cube 2D (test 20.03 ml code = 2265314416) MV Decel slope (test 4.32 m/s2 code = 0983758955) Pred Exer Dur R1 (test 5.96 code = 8200440022) Pred METS R1 (test code 4.56 = 8988348299) LA Vol MOD A4C (test 41.75 ml code = 4190122905) Velocity Ratio (V1/V2) 0.53 m/s (test code = 4689) EF (test code = 66.62 % 0633577752) E/A ratio (test code = 0.66 5203206678) LVOT VTI (CM) (test 25.00 cm code = 5271882659) GABRIEL (test code = GABRIEL) Left ventricular systolic function is normal. Left Ventricular ejection fraction is 55 - 60%. Tre Alfaro carotid [id number] 10:05:33Hm Interface, Radiology Results 01/13/2021 10:08 AM [...] arteries are patent and demonstrate normal antegrade flow.[facility]-[id number] [facility] CenterI Brain Wo Jqqstuce2067-32-24 07:49:41Hm Interface, Radiology Results 01/13/2021 7:52 AM [...] parietal lobar region. No evidence of hemorrhagic transformation.[facility]-[id number] MethodistMRA Head Wo Qapvgbyg0580-45-50 07:48:08Hm Interface, Radiology Results 01/13/2021 7:51 AM [...] intracranial vasculature. Consider further evaluation with CT angiogram.[facility]-Doug MethodistMRA Neck Wo Qsjszyru0132-01-12 07:43:12Hm Interface, Radiology Results 01/13/2021 7:46 AM CDT EXAMINATION: MRA NECK WO CONTRASTCLINICAL HISTORY: StrokeCOMPARISON: None.IMPRESSION:3-D reconstructions are processed off-line.No narrowing by NASCET criteria of the cervical internal carotid arteries.No hemodynamically significant narrowing of the distal common carotid arteries or visualized extracranial vertebral arteries.[facility]ALTHDoug AsyomuzdzKCXZ-VsS-3 (COVID-19) RNA [Presence] in Respiratory specimen by SIGIFREDO with probe [id number] 06:18:17 Test Item Value Reference Range Interpretation Comments SARS-CoV-2 (COVID-19) RNA Not detected Not-Detected [Presence] in Respiratory specimen by SIGIFREDO with probe detection (test code = 09364-1) XR Hand 3+ Vw [id number] 04:26:05Hm Interface, Radiology Results 01/13/2021 4:29 AM CDT EXAMINATION: XR HAND 3 VW LEFTCLINICAL HISTORY: fallCOMPARISON: None.IMPRESSION:Osteopenia of the visualized osseous structures.No acute fractures or dislocations.The visualized joint spaces are anatomic. Advanced degenerative change of the articulation of the first metacarpal and trapezium.No soft tissue abnormalities.[id number] MethodistCT Head Wo Contrast 2021-01-13 02:37:41Hm Interface, [...] Dr. Yu at 2:35 AM. He verbalized understanding.[facility]-[id number] MethodistCT Cervical Spine Wo [id number] 02:33:33Hm Interface, Radiology Results 01/13/2021 2:36 AM [...] cervical spine is identified.Prominent cervical spondylosis as discussed.[facility]-[id number] MethodistUrine wkieyxn2928-53-82 02:10:10 Test Item Value Reference Range Interpretation Comments Urine culture (test SEE COMMENT Bacteriu rob screen code = 8365418) negative. [place] MethodistXR Chest 1 Vw Osaqcqwt7987-00-22 01:32:42Hm Interface, Radiology Results 01/13/2021 1:35 AM CDT EXAMINATION: XR CHEST 1 VW PORTABLECLINICAL HISTORY: SOBCOMPARISON: 07/29/2017.IMPRESSION:The lungs are clear. No pleural effusion or pneumothorax. Cardiac silhouette appearsprominent due in part to technique. Thoracic aorta atherosclerotic calcifications.No acute osseous ab normalities.[facility]-[id number] MethodistXR Hips Bilateral Ap Lateral W Ap Ujmdbj6898-48-29 01:31:08Hm Interface, Radiology Results 01/13/2021 1:34 AM CDT XR HIPS BILATERAL AP LATERAL W AP PELVISCLINICAL INDICATION: fallCOMPARISON: 07/29/2017IMPRESSION:Bones are demineralized noting interval pinning of previous subcapital right femoral fracture. No acute fracture of either hip is identified and there is no dislocation. Pelvicring appears intact. Periarticular soft tissues are unremarkable.*[facility]-WPHYMDLNew [place]ins[place] MethodistECG ED Preliminary Interpretation - Not an [id number] 00:27:02 Test Item Value Reference Range Interpretation Comments GABRIEL (test code = GABRIEL) Zoey Yu DO 01/13/2021 2:49 AMECG ED Preliminary Interpretation - Not an OrderPerformed by: Zoey Yu DOAuthorized by: Zoey Yu DO ECG reviewed by ED Physician in the absence of a costume director: yes Interpretation: Interpretation: abnormal Rate: ECG rate: 80 ECG rate assessment: normal Rhythm: Rhythm: sinus rhythm QRS: QRS axis: LeftComments: Sinus rhythm with some premature atrial complexes and nonspecific ST abnormality but no STEMI Lab Interpretation Abnormal (test code = 52381-0) [facility]2021-04-05 00:27:02Zoey Yu DO 01/13/2021 2:49 AMCritical CarePerformed by: Zoey Yu DOAuthorized by: Zoey Yu DO Critical care provider statement: Critical care time (minutes): 36 Critical care time was exclusive of: Separately billable procedures and treating other patients and teaching time Critical care was necessary to treat or prevent imminent or life- threatening deterioration of the following conditions: 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 Continued monitoring of the clinical examination and annual mammography in 1 year is recommended. BI-RADS Category 2:Benign Finding(s) Workstation Name: [id number] A NEGATIVE X-RAY REPORT SHOULD NOT DELAY BIOPSY IF A DOMINANT OR CLINICALLY SUSPICIOUS MASS IS PRESENT. NOT ALL CANCERS ARE IDENTIFIED BY X-RAY. [facility], Radiology Results Incoming- 08/29/2020 5:27 PM CST PROCEDURE:Bilateral MAMMO SCREENING BILATERAL W HZOU HISTORY:Patient is 75 years old and is [...]
[2021-05-01 18:17] LABS: Absolute Lymphocytes (CBC) 1.4 K/uL (0.7-4.9); Basophils % 0.4 % (0-1.3); Hematocrit 39.3 % (36.0-45.0); Lymphocytes % 13.9 % (15.3-44.8); MPV 6.8 fL (7.6-11.3); RBC Red Blood Cell Count 4.46 M/uL (3.86-4.86)
[2021-05-01 18:19] LABS: Protime INR 1.25
--- NOTE | 2021-05-01 18:41 | RAD REPORT ---
EXAM DESCRIPTION: Brittnee Single View05/01/2021 6:14 pm CLINICAL HISTORY: Cough COMPARISON: March 2021 FINDINGS: The lungs appear clear of acute infiltrate. The heart is normal size. The aorta is tortuous/ectatic. It is unchanged in appearance IMPRESSION: No acute abnormalities displayed
[2021-05-01] MEDS ORDERED: METRONIDAZOLE 500mg IVPB 0 MG/0 ML BAG IV ONE (18:50)
[2021-05-01] MEDS ORDERED: CIPROFLOXACIN 400mg IV 0 MG/0 ML BAG IV ONE (18:50)
--- NOTE | 2021-05-01 18:54 | ER ---
Nurse's Notes [facility] Name: Yanely Ivan Age: 76 yrs Sex: Female : 1945 Arrival Date: 05/01/2021 Time: 16:04 Bed 13 Private MD: Diagnosis: Generalized abdominal tenderness;GI Bleed/ Gastrointestinal hemorrhage, unspecified;Enterocolitis due to Clostridium difficile-history;Hypokalemia Presentation: 05/01 16:11 Chief complaint: EMS states: pt from [facility] home c/o LOWER abdominal tw2 pain with blood stools. pt did have a GI stent to help but it hasnt. she did have bariatric surgery in 2011. Coronavirus screen: At this time, the client does not indicate any symptoms associated with coronavirus-19. Ebola Screen: Patient denies travel to an Ebola-affected area in the 21 days before illness onset. Initial Sepsis Screen: Does the patient meet any 2 criteria? No. Patient's initial sepsis screen is negative. Does the patient have a suspected source of infection? No. Patient's initial sepsis screen is negative. Risk Assessment: Do you want to hurt yourself or someone else? Patient reports no desire to harm self or others. Onset of symptoms was May 01, 2021. 16:11 Method Of Arrival: EMS: [facility] tw2 16:11 Acuity: ANGEL 3 tw2 Triage Assessment: 16:15 General: Appears in no apparent distress. slender, Behavior is calm, cooperative, tw2 appropriate for age. Pain: Complains of pain in abdomen. EENT: No signs and/or symptoms were reported regarding the EENT system. Neuro: Level of Consciousness is awake, alert, obeys commands, Oriented to person, place, situation. Cardiovascular: Capillary refill < 3 seconds. Respiratory: Airway is patent Respiratory effort is even, unlabored, Respiratory pattern is regular, symmetrical. GI: Reports lower abdominal pain, upper abdominal pain, bloody stool. : No signs and/or symptoms were reported regarding the genitourinary system. Derm: Skin is dry, Skin is pale, Skin temperature is warm. Musculoskeletal: Reports limited movement from previous stroke affecting right side. Historical: - Allergies: 16:14 Latex, Natural Rubber; tw2 16:14 Sulfa (Sulfonamide Antibiotics); tw2 - PMHx: 16:14 Atrial Fib; C-diff 02/27/21; CVA; hemiplegia; left sided weakness; Hypertension; tw2 overactive bladder; weakness, generalized; - PSHx: 16:14 gastric bypass; tw2 - Immunization history:: Adult Immunizations. - Social history:: Smoking status: . - Family history:: not pertinent. Screenin:17 Abuse screen: Denies threats or abuse. Nutritional screening: No deficits noted. tw2 Tuberculosis screening: No symptoms or risk factors identified. Fall Risk Secondary diagnosis (15 points) impaired mobility, CVA. Assessment: 16:15 GI: Bowel sounds present X 4 quads. Abd is soft X 4 quads. tw2 16:16 Reassessment: see triage assessment. tw2 17:16 Reassessment: Patient appears in no apparent distress at this time. No changes from tw2 previously documented assessment. Patient and/or family updated on plan of care and expected duration. Pain level reassessed. 18:08 Reassessment: Patient appears in no apparent distress at this time. No changes from tw2 previously documented assessment. Patient and/or family updated on plan of care and expected duration. Pain level reassessed. 19:10 Reassessment: Patient appears in no apparent distress at this time. Patient and/or jb4 family updated on plan of care and expected duration. Pain level reassessed. Patient is alert, oriented x 3, equal unlabored respirations, skin warm/dry/pink. 20:00 Reassessment: Patient appears in no apparent distress at this time. Patient and/or jb4 family updated on plan of care and expected duration. Pain level reassessed. Patient is alert, oriented x 3, equal unlabored respirations, skin warm/dry/pink. 21:00 Reassessment: Patient appears in no apparent distress at this time. Patient and/or jb4 family updated on plan of care and expected duration. Pain level reassessed. Patient is alert, oriented x 3, equal unlabored respirations, skin warm/dry/pink. 22:05 Reassessment: Patient appears in no apparent distress at this time. Patient and/or jb4 family updated on plan of care and expected duration. Pain level reassessed. Patient is alert, oriented x 3, equal unlabored respirations, skin warm/dry/pink. 23:00 Reassessment: Patient appears in no apparent distress at this time. Patient and/or jb4 family updated on plan of care and expected duration. Pain level reassessed. Patient is alert, oriented x 3, equal unlabored respirations, skin warm/dry/pink. brief changed, stool sample collected. Patient denies pain at this time. Vital Signs: 16:11 BP 110 / 92; Pulse 111; Resp 17; Temp 99(O); Pulse Ox 95% on R/A; Weight 53.52 kg (R); tw2 Height 5 ft. 2 in. (157.48 cm); 17:15 BP 97 / 73; Pulse 110; Resp 17; Pulse Ox 96% on R/A; tw2 18:08 BP 92 / 74; Pulse 108; Resp 17; Pulse Ox 95% on R/A; tw2 20:45 BP 106 / 77; Pulse 96; Resp 14; Pulse Ox 94% on R/A; jb4 21:45 BP 108 / 64; Pulse 101; Resp 14; Pulse Ox 95% on R/A; jb4 22:45 BP 111 / 78; Pulse 100; Resp 15; Pulse Ox 100% on R/A; jb4 16:11 Body Mass Index 21.58 (53.52 kg, 157.48 cm) tw2 ED Course: 16:04 Patient arrived in ED. tw2 16:05 Bed in low position. Call light in reach. Side rails up X2. cafeteria monitor on. Pulse tw2 ox on. NIBP on. Warm blanket given. 16:14 Triage completed. tw2 16:15 Arm band placed on. tw2 16:41 Keith Yu MD is Attending Physician. faviola 17:14 Yulissa Servin, DENNIS is Primary Nurse. tw2 17:57 Inserted saline lock: 22 gauge in left antecubital area, using aseptic technique. Blood tw2 collected. 18:14 XRAY Chest (1 view) In Process Unspecified. EDMS 18:18 Patient has correct armband on for positive identification. Placed in gown. mh5 18:18 EKG done, by ED staff, reviewed by Keith Yu MD. 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 tw2 18:52 Abdullahi Bunch MD is Hospitalizing Provider. faviola 20:10 CT Abd/Pelvis - IV Contrast Only In Process Unspecified. EDMS 22:45 Patient admitted, IV remains in place. jb4 Administered Medications: 18:36 Not Given (Patient Refused; "no more antibiotics", provider notified.): Cipro tw2 (ciprofloxacin) 400 mg 200 ml IVPB once over 60 mins 18:36 Not Given (Patient Refused; "dont want antibiotics", provider notified.): Flagyl tw2 (metroNIDAZOLE) 500 mg 100 ml IVPB at 200 ml/hr once over 30 mins 19:00 Drug: Flagyl (metroNIDAZOLE) 500 mg Volume: 100 ml; Route: IVPB; Rate: 200 ml/hr; tw2 Infused Over: 30 mins; Site: left antecubital; 19:30 Follow up: Response: No adverse reaction; IV Status: Completed infusion; IV Intake: jb4 100ml 20:45 Drug: NS 0.9% 500 ml Route: IV; Rate: bolus; Site: left antecubital; jb4 21:30 Follow up: Response: No adverse reaction; IV Status: Completed infusion; IV Intake: jb4 500ml 20:45 Drug: NS 0.9% with KCl 20 mEq/L 1000 ml Route: IV; Rate: 100 ml/hr; Site: left jb4 antecubital; 23:02 Follow up: Response: No adverse reaction; IV Status: Infusion continued upon admission; jb4 IV Intake: 230ml 21:58 Drug: fentaNYL (PF) 25 mcg Route: IVP; Site: left antecubital; jb4 22:30 Follow up: Response: No adverse reaction; Marked relief of symptoms; Pain is decreased; jb4 RASS: Alert and Calm (0) Intake: 19:30 IV: 100ml; Total: 100ml. jb4 21:30 IV: 500ml; Total: 600ml. jb4 23:02 IV: 230ml; Total: 830ml. jb4 Outcome: 18:54 Decision to Hospitalize by Provider. faviola 22:45 Admitted to Med/surg accompanied by tech, via stretcher, room 206, with chart, Report jb4 called to DENNIS Mcgraw 22:45 Condition: stable 22:45 Discharge instructions given to patient, Instructed on the need for admit, Demonstrated understanding of instructions. 23:02 Patient left the ED. jb4 Signatures: Dispatcher MedHo EDWY Keith Yu MD MD cha Wise, Tara, RN RN 2 Jesús Maldonado RN RN Summer [facility] Corrections: (The following items were deleted from the chart) 23:01 23:00 Reassessment: Patient appears in no apparent distress at this time. Patient jb4 and/or family updated on plan of care and expected duration. Pain level reassessed. Patient is alert, oriented x 3, equal unlabored respirations, skin warm/dry/pink. jb4
--- NOTE | 2021-05-01 18:54 | EDPHYS ---
Physician Documentation [facility] Name: Yanely Ivan Age: 76 yrs Sex: Female : 1945 Arrival Date: 05/01/2021 Time: 16:04 Bed 13 Private MD: ALEK Physician Keith Yu HPI: 05/01 18:47 This 76 yrs old Female presents to ER via EMS with complaints of Abd Pain > faviola 48 y/o, Bloody Stools. 18:47 The patient presents with abdominal pain in the upper abdomen, in the lower abdomen. faviola Onset: The symptoms/episode began/occurred 2 day(s) ago. The symptoms do not radiate. Associated signs and symptoms: Pertinent positives: blood in stools. The symptoms are described as constant, crampy. Modifying factors: The symptoms are alleviated by nothing, the symptoms are aggravated by nothing. Severity of pain: At its worst the pain was moderate. The patient has not experienced similar symptoms in the past. Historical: - Allergies: 16:14 Latex, Natural Rubber; tw2 16:14 Sulfa (Sulfonamide Antibiotics); tw2 - PMHx: 16:14 Atrial Fib; C-diff 02/27/21; CVA; hemiplegia; left sided weakness; Hypertension; tw2 overactive bladder; weakness, generalized; - PSHx: 16:14 gastric bypass; tw2 - Immunization history:: Adult Immunizations. - Social history:: Smoking status: . - Family history:: not pertinent. ROS: 18:47 Constitutional: Negative for fever, chills, and weight loss, Eyes: Negative for injury, faviola pain, redness, and discharge, ENT: Negative for injury, pain, and discharge, Neck: Negative for injury, pain, and swelling, Respiratory: Negative for shortness of breath, cough, wheezing, and pleuritic chest pain, Back: Negative for injury and pain, : Negative for injury, bleeding, discharge, and swelling, MS/Extremity: Negative for injury and deformity, Skin: Negative for injury, rash, and discoloration, Neuro: Negative for headache, weakness, numbness, tingling, and seizure, Psych: Negative for depression, anxiety, suicide ideation, homicidal ideation, and hallucinations, Allergy/Immunology: Negative for hives, rash, and allergies, Endocrine: Negative for neck swelling, polydipsia, polyuria, polyphagia, and marked weight changes, Hematologic/Lymphatic: Negative for swollen nodes, abnormal bleeding, and unusual bruising. 18:47 Cardiovascular: Positive for palpitations. 18:47 Abdomen/GI: Positive for abdominal pain, diarrhea, abdominal cramps, black/tarry stool, of the right upper quadrant, left upper quadrant, right lower quadrant and left lower quadrant. Exam: 18:47 Constitutional: This is a well developed, well nourished patient who is awake, alert, faviola and in no acute distress. Head/Face: Normocephalic, atraumatic. Eyes: Pupils equal round and reactive to light, extra-ocular motions intact. Lids and lashes normal. Conjunctiva and sclera are non-icteric and not injected. Cornea within normal limits. Periorbital areas with no swelling, redness, or edema. ENT: Nares patent. No nasal discharge, no septal abnormalities noted. Tympanic membranes are normal and external auditory canals are clear. Oropharynx with no redness, swelling, or masses, exudates, or evidence of obstruction, uvula midline. Mucous membranes moist. Neck: Trachea midline, no thyromegaly or masses palpated, and no cervical lymphadenopathy. Supple, full range of motion without nuchal rigidity, or vertebral point tenderness. No Meningismus. Chest/axilla: Normal chest wall appearance and motion. Nontender with no deformity. No lesions are appreciated. Cardiovascular: Regular rate and rhythm with a normal S1 and S2. No gallops, murmurs, or rubs. Normal PMI, no JVD. No pulse deficits. Respiratory: Lungs have equal breath sounds bilaterally, clear to auscultation and percussion. No rales, rhonchi or wheezes noted. No increased work of breathing, no retractions or nasal flaring. Back: No spinal tenderness. No costovertebral tenderness. Full range of motion. Female : Normal external genitalia. Skin: Warm, dry with normal turgor. Normal color with no rashes, no lesions, and no evidence of cellulitis. MS/ Extremity: Pulses equal, no cyanosis. Neurovascular intact. Full, normal range of motion. Neuro: Awake and alert, GCS 15, oriented to person, place, time, and situation. Cranial nerves II-XII grossly intact. Motor strength 5/5 in all extremities. Sensory grossly intact. Cerebellar exam normal. Normal gait. Psych: Awake, alert, with orientation to person, place and time. Behavior, mood, and affect are within normal limits. 18:47 Abdomen/GI: Inspection: abdomen appears normal, Bowel sounds: normal, Palpation: mild abdominal tenderness, moderate abdominal tenderness, in all quadrants, in the right upper quadrant, left upper quadrant, right lower quadrant and left lower quadrant, Rectal exam: rectal tone normal, Stool: guaiac positive, hemorrhoid(s), are not appreciated, swelling, is not appreciated, tenderness, is not appreciated, Liver: no appreciated palpable abnormalities, Hernia: not appreciated. 19:11 ECG was reviewed by the Attending Physician. [facility] Vital Signs: 16:11 BP 110 / 92; Pulse 111; Resp 17; Temp 99(O); Pulse Ox 95% on R/A; Weight 53.52 kg (R); tw2 Height 5 ft. 2 in. (157.48 cm); 17:15 BP 97 / 73; Pulse 110; Resp 17; Pulse Ox 96% on R/A; tw2 18:08 BP 92 / 74; Pulse 108; Resp 17; Pulse Ox 95% on R/A; tw2 20:45 BP 106 / 77; Pulse 96; Resp 14; Pulse Ox 94% on R/A; jb4 21:45 BP 108 / 64; Pulse 101; Resp 14; Pulse Ox 95% on R/A; jb4 22:45 BP 111 / 78; Pulse 100; Resp 15; Pulse Ox 100% on R/A; jb4 16:11 Body Mass Index 21.58 (53.52 kg, 157.48 cm) tw2 MDM: 16:41 Patient medically screened. faviola 19:10 Differential diagnosis: bowel obstruction, diverticulitis, gastritis, Irritable bowel faviola syndrome, myocardia ischemia or infarction, non-specific abd pain, pancreatitis, Peptic Ulcer Disease, Pyelonephritis, urinary tract infection. Data reviewed: vital signs, nurses notes, EMS record, lab test result(s), EKG, radiologic studies, CT scan, plain films. Data interpreted: clip baker: rate is 108 beats/min, rhythm is regular, Pulse oximetry: on room air is 95 %. Test interpretation: by ED physician or midlevel provider: ECG, plain radiologic studies. Counseling: I had a detailed discussion with the patient and/or guardian regarding: the historical points, exam findings, and any diagnostic results supporting the discharge/admit diagnosis, lab results, radiology results, the need for further work-up and treatment in the hospital. 05/01 17:41 Order name: Basic Metabolic Panel; Complete Time: 19:48 [facility] 05/01 17:41 Order name: CBC with Diff; Complete Time: 18:46 [facility] 05/01 17:41 Order name: LFT's; Complete Time: 19:48 [facility] 05/01 17:41 Order name: Magnesium; Complete Time: 19:48 [facility] 05/01 17:41 Order name: NT PRO-BNP; Complete Time: 19:48 [facility] 05/01 17:41 Order name: PT-INR; Complete Time: 18:46 [facility] 05/01 17:41 Order name: Troponin (emerg Dept Use Only); Complete Time: 19:48 [facility] 05/01 17:41 Order name: Lipase; Complete Time: 19:48 [facility] 05/01 17:41 Order name: Urine Culture 05/01 17:41 Order name: Lactate; Complete Time: 18:46 [facility] 05/01 17:41 Order name: Type And Screen 05/01 17:41 Order name: Fecal Leukocyte Stain 05/01 17:41 Order name: Occult Blood 05/01 17:41 Order name: Stool Culture 05/01 17:41 Order name: XRAY Chest (1 view); Complete Time: 18:46 [facility] 05/01 17:41 Order name: EKG; Complete Time: 17:41 [facility] 05/01 17:41 Order name: Cardiac monitoring; Complete Time: 18:09 [facility] 05/01 17:41 Order name: EKG - Nurse/Tech; Complete Time: 18:09 [facility] 05/01 17:41 Order name: IV Saline Lock; Complete Time: 18:09 [facility] 05/01 17:41 Order name: Labs collected and sent; Complete Time: 18:09 [facility] 05/01 18:35 Order name: CDIFF [facility] 05/01 18:35 Order name: CT Abd/Pelvis - IV Contrast Only; Complete Time: 20:44 [facility] 05/01 19:51 Order name: SARS-COV-2 RT PCR; Complete Time: 20:13 EDMS 05/01 17:41 Order name: O2 Per Protocol; Complete Time: 18:09 [facility] 05/01 17:41 Order name: O2 Sat Monitoring; Complete Time: 19:07 faviola EC:11 Rate is 109 beats/min. Rhythm is regular. QRS [place] is Normal. IN interval is normal. faviola QRS interval is normal. QT interval is normal. No Q waves. T waves are Normal. No ST changes noted. Clinical impression: NSR w/ Non-specific ST/T Changes. Interpreted by me. Reviewed by me. Administered Medications: 18:36 Not Given (Patient Refused; "no more antibiotics", provider notified.): Cipro tw2 (ciprofloxacin) 400 mg 200 ml IVPB once over 60 mins 18:36 Not Given (Patient Refused; "dont want antibiotics", provider notified.): Flagyl tw2 (metroNIDAZOLE) 500 mg 100 ml IVPB at 200 ml/hr once over 30 mins 19:00 Drug: Flagyl (metroNIDAZOLE) 500 mg Volume: 100 ml; Route: IVPB; Rate: 200 ml/hr; tw2 Infused Over: 30 mins; Site: left antecubital; 19:30 Follow up: Response: No adverse reaction; IV Status: Completed infusion; IV Intake: jb4 100ml 20:45 Drug: NS 0.9% 500 ml Route: IV; Rate: bolus; Site: left antecubital; jb4 21:30 Follow up: Response: No adverse reaction; IV Status: Completed infusion; IV Intake: jb4 500ml 20:45 Drug: NS 0.9% with KCl 20 mEq/L 1000 ml Route: IV; Rate: 100 ml/hr; Site: left jb4 antecubital; 23:02 Follow up: Response: No adverse reaction; IV Status: Infusion continued upon admission; 4 IV Intake: 230ml 21:58 Drug: fentaNYL (PF) 25 mcg Route: IVP; Site: left antecubital; jb4 22:30 Follow up: Response: No adverse reaction; Marked relief of symptoms; Pain is decreased; jb4 RASS: Alert and Calm (0) Disposition Summary: 05/01/21 18:54 Hospitalization Ordered Hospitalization Status: Inpatient Admission faviola Provider: Abdullahi Bunch cha Location: Telemetry/MedSurg (Inpatient) faviola Condition: Stable faviola Problem: new faviola Symptoms: have improved faviola Bed/Room Type: Standard [facility] Room Assignment: 206(05/01/21 21:55) cg Diagnosis - Generalized abdominal tenderness faviola - GI Bleed/ Gastrointestinal hemorrhage, unspecified faviola - Enterocolitis due to Clostridium difficile - history faviola - Hypokalemia faviola Forms: - Medication Reconciliation Form faviola - SBAR form faviola Signatures: Dispatcher [employer] EDMS Keith Yu MD MD cha Martinez, Eric em1 Renato Doty, PLACE CHANGE ROOF BOLTER-C PLACE CHANGE ROOF BOLTER-Cla1 Michaela Olea, RN RN cg Yulissa Servin RN RN tw2 Jesús Maldonado RN RN jb4 Corrections: (The following items were deleted from the chart) 18:54 18:36 Labs - recollect needed ordered. em1 tw2 18:59 17:41 CORONAVIRUS+MR.LAB.BRZ ordered. EDMS EDMS 21:55 18:54 faviola cg
[2021-05-01] MEDS ORDERED: METRONIDAZOLE 500mg IVPB 500 MG/100 ML BAG IV ONE (19:14)
[2021-05-01 19:27] LABS: ALT/SGPT 152 U/L (12-78); AST/SGOT 86 U/L (15-37); Albumin 2.3 g/dL (3.4-5.0); Alkaline Phosphatase 437 U/L (45-117); BUN Blood Urea Nitrogen 29 mg/dL (7-18); Bicarbonate 22 mmol/L (21-32); Bilirubin Direct 0.4 mg/dL (0-0.2); Bilirubin Total 0.8 mg/dL (0.2-1.0); Glucose Level 96 mg/dL (74-106); Magnesium 1.8 mg/dL (1.8-2.4); NT PRO-BNP 783 pg/mL (<450); Protein, Total 6.5 g/dL (6.4-8.2); Sodium Level 141 mmol/L (136-145); Troponin (Emerg Dept Use Only) < 0.02 ng/mL (0.0-0.045)
[2021-05-01 19:28] LABS: Lipase < 10 U/L (73-393)
--- NOTE | 2021-05-01 20:43 | RAD REPORT ---
EXAM DESCRIPTION: CT - Abdomen Pelvis W Contrast - 05/01/2021 8:10 pm CLINICAL HISTORY: Abdominal pain COMPARISON: March 2021 TECHNIQUE: Computed axial tomography of the abdomen pelvis was obtained. 100 cc Isovue-300 was admin istered intravenously. Oral contrast was not requested which limits evaluation of bowel. All CT scans are performed using dose optimization technique as appropriate and may include automated exposure control or mA/KV adjustment according to patient size. FINDINGS: Cholecystectomy. Mild to moderate dilatation of the intrahepatic biliary tree with dilatat ion of the common bile duct persists. The spleen, pancreas, adrenals and kidneys are unremarkable. The left common iliac artery is diffusely dilated measuring 2.1 centimeters. Mild to moderate wall thickening of the entire colon. Pneumatosis intestinalis is not noted. IMPRESSION: Mild to moderate pancolitis Prominence of the biliary tree. This can be a normal finding in an elderly patient status post cholec ystectomy. 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
[2021-05-01] MEDS ORDERED: NS KCL 20MEQ 1,000 ML IV ONE (21:00)
[2021-05-01] MEDS ORDERED: NA CHLORIDE 0.9% 500 ML ONE (21:01)
[2021-05-01] MEDS ORDERED: FENTANYL CITR 100 MCG/2 ML ONE (21:52)
--- NOTE | 2021-05-01 22:05 | P.HP ---
Certification for Inpatient Patient admitted to: Observation With expected LOS: <2 Midnights Patient will require the following post-hospital care: None Practitioner: I am a practitioner with admitting privileges, knowledge of patient current condition, hospital course, and medical plan of care. Services: Services provided to patient in accordance with Admission requirements found in Title 42 Section 412.3 of the Code of Federal Regulations Patient History Date of Service: 05/01/21 Primary Care Provider: long term doctor Reason for admission: Pancolitis History of Present Illness: 76-year-old female with history of atrial fibrillation, lymphocytic colitis, hypertension, CVA with hemiplegia, personal history of C. difficile with biliary disease status post axial stenting and cholecystectomy presented to the emergency department for abdominal pain, diarrhea, dark stools. Patient was seen by Dr. SNYDER at [facility] for pancolitis, biliary tree dilatation last month and she had a axial stent from her stomach to her bile duct placed at that time as well as an EGD and a colonoscopy which demonstrated lymphocytic colitis. Patient was discharged [facility], patient does take chronic iron therapy. long term staff noticed that patient stool was darker than it had been, foul odor and patient was having some lower abdominal pain. 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 transfer was attempted to see [facility] for continuity of care and patient preference, transfer was declined due to capacity. Case was then discussed with local gastroenterology on-call who recommended IV antibiotics, hydration, steroids. If patient's condition worsens or there is any biliary pathology she will need to be transferred back to her surgeon at [facility] in [place]. Patient does have a scheduled ERCP on May 13. Will admit for further evaluation and management. - Past Medical/Surgical History -: Atrial fibrillation -: Hypertension -: History of CVA -: History of C. difficile -: Biliary disease status post axial stenting -: Axial stent (stent from stomach to bile duct) -: Gastric bypass -: Cholecystectomy -: Hysterectomy -: Bladder sling -: Foot surgery -: Knee surgery Psychosocial/ Personal History: Patient is [facility] resident - Family History Family History: Reviewed- Non-Contributory - Social History Smoking Status: Never smoker Alcohol use: No CD- Drugs: No Caffeine use: Yes Place of Residence: [place] Review of Systems 10-point ROS is otherwise unremarkable General: Weakness, Malaise Gastrointestinal: Nausea, Abdominal Pain, Diarrhea Physical Examination - Physical Exam General: Alert, In no apparent distress, Oriented x3 HEENT: Atraumatic, PERRLA, Other (Mucous membranes dry), EOMI, Sclerae nonicteric Neck: Supple, 2+ carotid pulse no bruit, No LAD, Without JVD or thyroid abnormality Respiratory: Clear to auscultation bilaterally, Normal air movement Cardiovascular: Regular rate/rhythm, Normal S1 S2 Gastrointestinal: Normal bowel sounds, Tenderness (Mild lower abdominal tenderness) Musculoskeletal: No tenderness Integumentary: No rashes Neurological: Normal speech, Normal strength at 5/5 x4 extr, Normal tone, Normal affect - Studies Laboratory Data (last 24 hrs) 05/01/21 17:57: PT 14.4 H, INR 1.25 05/01/21 17:57: WBC 10.00, Hgb 13.0, Hct 39.3, Plt Count 331 05/01/21 17:57: Sodium 141, Potassium 3.0 L, BUN 29 H, Creatinine 1.00, Glucose 96, Magnesium 1.8, Total Bilirubin 0.8, AST 86 H, ALT 152 H, Alkaline Andrzej sphatase 437 H, Lipase < 10 L Microbiology Data (last 24 hrs): 05/01/21 17:41 Stool Stool Occult Blood (VANDANA) - Final P[employer] FINISHER Assessment and Plan - Plan Assessment: Diarrhea, abdominal pain secondary to moderate pancolitis with history of C. difficile and lymphocytic colitis Biliary disease status post cholecystectomy/gastric bypass with axial stent in place Dehydration, hypokalemia Atrial fibrillation not on chronic anticoagulation therapy Hypertension History of CVA Plan: Diarrhea, abdominal pain secondary to moderate pancolitis with history of C. difficile and lymphocytic colitis: Continue with IV Rocephin, Flagyl, give dose of IV steroids this evening for lymphocytic colitis. Stool culture, C. difficile test pending. We will continue to rehydrate patient and replace potassium. Clear liquid diet advance as tolerated, as needed pain medications. Patient reports dark stools but takes iron daily, hemoglobin within normal limits, trace positive Hemoccult but this could be from iron use. Case was discussed with gastroenterology who recommends no intervention at this time. Biliary disease status post cholecystectomy/gastric bypass with axial stent in place: Patient with known biliary pathology follows [facility] Dr. Snyder, this appears stable at this time, attempted transfer for continuity of care but declined for capacity. Patient scheduled for ERCP on May 13. If patient's condition changes in regard to biliary disease she will likely require transfer to [facility] in [place]. Dehydration, hypokalemia: Continue with IV fluids, potassium protocol. Atrial fibrillation not on chronic anticoagulation therapy: Continue medications, adjust as necessary. Hypertension: Continue home medications History of CVA: Continue home medications DVT PPX: SCDs Code status: DNR Discharge Plan: Home Plan to discharge in: 24 Hours - Advance Directives Does patient have a Living Will: No Does patient have a Durable POA for Healthcare: No - Code Status/Comfort Care Code Status Assessed: Yes (DNR) Critical Care: No Time Spent Managing Pts Care (In Minutes): 55
[2021-05-01] MEDS ORDERED: ONDANSETRON 4 MG/2 ML VIAL IV PRN (22:34)
[2021-05-01] MEDS ORDERED: ACETAMINOPHEN 500 MG TAB PO PRN (22:34)
[2021-05-01] MEDS ORDERED: CEFTRIAXONE/SWI 1gm 1 GM/10 ML SYR IV SCH (22:45)
[2021-05-01] MEDS ORDERED: METHYLPREDNISOLONE 40 MG INJ IV ONE (23:00)
[2021-05-01] MEDS: D5.45NS W/KCL 20MEQ 1,000 ML IV SCH (23:40)
[2021-05-01 23:53] VITALS: O2SAT 100
[2021-05-02] MEDS ORDERED: TRAMADOL HCL 50 MG TAB PO PRN ×2 (01:52→04:38)
[2021-05-02] MEDS: METRONIDAZOLE 500mg IVPB 500 MG/100 ML BAG IV SCH ×2 (02:13→09:03)
[2021-05-02 04:21] LABS: Absolute Lymphocytes (CBC) 1.1 K/uL (0.7-4.9); Basophils % 0.2 % (0-1.3); Hematocrit 35.2 % (36.0-45.0); Lymphocytes % 10.5 % (15.3-44.8); MPV 6.8 fL (7.6-11.3); RBC Red Blood Cell Count 3.97 M/uL (3.86-4.86)
[2021-05-02] MEDS ORDERED: LOPERAMIDE HCL 2 MG CAPSULE PO PRN (04:38)
[2021-05-02 04:40] LABS: Bilirubin Total 0.4 mg/dL (0.2-1.0); Magnesium 1.7 mg/dL (1.8-2.4); Potassium 3.1 mmol/L (3.5-5.1); Protein, Total 5.6 g/dL (6.4-8.2)
[2021-05-02] MEDS ORDERED: MAGNESIUM SULFATE 1 gm IVPB 1 GM/100 ML BAG IV ONE (07:24)
[2021-05-02] MEDS ORDERED: THIAMINE HCL 100 MG TABLET PO SCH (09:00)
[2021-05-02] MEDS ORDERED: POTASSIUM CL SA 10 MEQ TAB PO SCH (09:00)
[2021-05-02] MEDS ORDERED: CEFTRIAXONE 1 GM/NS 50 ML 1 GM/50 ML BAG IV SCH (09:00)
[2021-05-02] MEDS ORDERED: B COMPLEX PO SCH (09:00)
[2021-05-02] MEDS ORDERED: NYSTATIN OINT 15 GM TUBE TOP SCH (09:00)
[2021-05-02] MEDS ORDERED: FLUTICASONE 50MCG NASAL SPRAY NAS SCH (09:00)
[2021-05-02] MEDS ORDERED: POTASSIUM 25 MEQ EFFERV TAB PO ONE (09:00)
[2021-05-02] MEDS ORDERED: FOLIC ACID PO SCH (09:00)
[2021-05-02] MEDS ORDERED: ASCORBIC ACID PO SCH (09:00)
[2021-05-02] MEDS: FERROUS SULFATE 325 MG TAB PO SCH ×2 (09:03→13:53)
[2021-05-02] MEDS: D5.45NS W/KCL 20MEQ 1,000 ML IV SCH (09:05)
[2021-05-02 14:00] VITALS: BP 112/58; TEMP 97.1
--- NOTE | 2021-05-02 16:43 | P.DS ---
Admission Date: 05/01/21 Discharge Date: 05/02/21 Primary Care Provider: [facility] Disposition: [facility] TO [facility] Discharge Condition: GOOD Reason for Admission: Pancolitis Consultations: GI - Dr. Holt Procedures: CXR (05/01): no acute abnormalities CT Abd/pelvis (05/01): FINDINGS: Cholecystectomy. Mild to moderate dilatation of the intrahepatic biliary tree with dilatation of the common bile duct persists. The spleen, pancreas, adrenals and kidneys are unremarkable. The left common iliac artery is diffusely dilated measuring 2.1 centimeters. Mild to moderate wall thickening of the entire colon. Pneumatosis intestinalis is not noted. IMPRESSION: Mild to moderate pancolitis Prominence of the biliary tree. This can be a normal finding in an elderly patient status post cholecystectomy. 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 difficile and lymphocytic colitis Biliary disease status post cholecystectomy/gastric bypass with axial stent in place Dehydration, hypokalemia, resolved 2.1cm Left Common illiac artery aneurysm Atrial fibrillation not on chronic anticoagulation therapy Hypertension Brief History of Present Illness: 76-year-old female with history of atrial fibrillation, lymphocytic colitis, hypertension, CVA with hemiplegia, personal history of C. difficile with biliary disease status post axial stenting and cholecystectomy presented to the emergency department for abdominal pain, diarrhea, dark stools. Patient was seen by Dr. SNYDER at [facility] for pancolitis, biliary tree dilatation last month and she had a axial stent from her stomach to her bile duct placed at that time as well as an EGD and a colonoscopy which demonstrated lymphocytic colitis. Patient was discharged to retirement, patient does take chronic iron therapy. [facility] staff noticed that patient stool was darker than it had been, foul odor and patient was having some lower abdominal pain. 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 transfer was attempted to see [facility] for continuity of care and patient preference, transfer was declined due to capacity. Case was then discussed with local gastroenterology on-call who recommended IV antibiotics, hydration, steroids. If patient's condition worsens or there is any biliary pathology she will need to be transferred back to her surgeon at [facility] in [place]. Patient does have a scheduled ERCP on May 13. Will admit for further evaluation and management. Hospital Course: GI was consulted and able to discuss the case with the patient's surgeon. Patient has a diagnosis of lymphocytic colitis. She was treated with steroids and covered empirically with IV antibiotics. She had significant and quick improvement of her diarrhea and abdominal pain. She remained afebrile, no leukocytosis, vital signs within normal limits and stable. She tolerated clear liquid diet. She was discharged back to retirement to continue 2-week taper of prednisone, and to continue on antibiotics. She is to follow-up with her surgeon in [place] as previously scheduled next week. Vital Signs/Physical Exam: Temp Pulse Resp BP Pulse Ox 97.1 F 60 16 112/58 L 95 05/02/21 12:00 05/02/21 12:00 05/02/21 12:00 05/02/21 12:05/02/21 12:00 General: Alert, In no apparent distress, Oriented x3 HEENT: Mucous membr. moist/pink, Sclerae nonicteric Neck: Supple Respiratory: Clear to auscultation bilaterally, Normal air movement Cardiovascular: No edema, Regular rate/rhythm, Normal S1 S2 Gastrointestinal: Soft and benign, Non-distended, Tenderness (mild suprapubic ) Musculoskeletal: No erythema, No tenderness Integumentary: No rashes, No significant lesion Neurological: Normal speech, Normal affect Laboratory Data at Discharge: WBC 10.80 K/uL (4.3-10.9) 05/02/21 03:50 Hgb 11.8 g/dL (12.0-15.0) L 05/02/21 03:50 Hct 35.2 % (36.0-45.0) L 05/02/21 03:50 Plt Count 272 K/uL (152-406) 05/02/21 03:50 PT 14.4 SECONDS (9.5-12.5) H 05/01/21 17:57 INR 1.25 05/01/21 17:57 Sodium 143 mmol/L (136-145) 05/02/21 03:50 Potassium 3.9 mmol/L (3.5-5.1) 05/02/21 15:13 BUN 26 mg/dL (7-18) H 05/02/21 03:50 Creatinine 0.79 mg/dL (0.55-1.3) 05/02/21 03:50 Glucose 126 mg/dL (74-106) H 05/02/21 03:50 Magnesium 1.7 mg/dL (1.8-2.4) L 05/02/21 03:50 Total Bilirubin 0.4 mg/dL (0.2-1.0) 05/02/21 03:50 AST 37 U/L (15-37) 05/02/21 03:50 ALT 98 U/L (12-78) H 05/02/21 03:50 Alkaline Phosphatase 336 U/L (45-117) H 05/02/21 03:50 Lipase < 10 U/L (73-393) L 05/01/21 17:57 Home Medications: Acetaminophen [Tylenol] 1 cap PO Q6H PRN 05/02/21 Aspirin 1 tab PO DAILY 05/02/21 B Complex- Nevin C-Folic 400mcg Tab 1 tab PO DAILY 05/02/21 Ciprofloxacin HCl [Cipro 500 MG Tablet] 500 mg PO BID 14 Days #28 tab 05/02/21 Citalopram [Celexa*] 1 tab PO BEDTIME 05/02/21 Clopidogrel Bisulfate [Plavix] 1 tab PO DAILY 05/02/21 Ergocalciferol (Vitamin D2) [Vitamin D2] 1 cap PO SEECOM 05/02/21 Ferrous Sulfate [Feosol] 1 tab PO TID 05/02/21 Fluticasone [Flonase 50MCG Nasal Borger*] 2 spray IH DAILY 05/02/21 Gabapentin [Gralise] 1 tab PO BEDTIME 05/02/21 Loperamide HCl [Loperamide] 1 tab PO QID PRN 05/02/21 Melatonin [Melatonin*] 1 tab PO BEDTIME 05/02/21 Nystatin Oint [Mycostatin 100 Mu/Gm Oint*] 1 lise TOP BID 05/02/21 Potassium Chloride [K-Tab ER] 1 tab PO DAILY 07/23/21 Rifaximin [Xifaxan] 1 tab PO BID 05/02/21 Thiamine HCl [Vitamin B-1] 1 tab PO DAILY 05/02/21 Tramadol HCl [Ultram] 1 tab PO Q6H PRN 05/02/21 metroNIDAZOLE [Flagyl] 500 mg PO Q8H 21 Days #63 tablet 05/02/21 predniSONE [Deltasone*] 10 mg PO SEECOM 14 Days #17 tab 05/02/21 New Medications: Ciprofloxacin HCl [Cipro 500 MG Tablet] 500 mg PO BID 14 Days #28 tab predniSONE [Deltasone*] 10 mg PO SEECOM 14 Days #17 tab metroNIDAZOLE [Flagyl] 500 mg PO Q8H 21 Days #63 tablet Physician Discharge Instructions: Found to have pancolitis - discussion with your GI doctor in [place] revealed a diagnosis of lymphocytic colitis. You were treated with steroids and antibiotics. You had improvement of your symptoms (pain and frequency of diarrhea). GI was consulted here, and agreed. Deemed ready for discharge back to retirement to continue steroid taper. Discharged on antibiotics as well given recent procedure and steroid use. Flagyl ordered for an additional week beyond cipro given prior c. diff history. Continue full liquid diet, slowly advancing to bland diet over the next few days. Follow up with your GI doctor as scheduled on 05/13 Diet: [place] Activity: Ad nolan Followup: HEATHER ROMERO [Primary Care Provider] - Time spent managing pt's care (in minutes): 40
[2021-05-02] MEDS ORDERED: GABAPENTIN 300 MG PO SCH (21:00)
[2021-05-02] MEDS ORDERED: CITALOPRAM 10 MG TABLET PO SCH (21:00)
[2021-05-02] MEDS ORDERED: MELATONIN 3 MG TABLET PO SCH (21:00)
[2021-05-05] MEDS ORDERED: DRISDOL (VITAMIN D=ERGOCALCIFEROL) 50000 UNIT CAP PO SCH (09:00)
== END 2021-05-02 16:49 ==
LOC: ER 15:55 → ERHOLD 21:49 → 2ND 22:30
PROVIDERS: ADMIT Hospitalist; ATTEND Hospitalist
DX: K51.00 Ulcerative (chronic) pancolitis without complications (principal); K52.832 Lymphocytic colitis; E87.6 Hypokalemia; E86.0 Dehydration; I72.3 Aneurysm of iliac artery; K83.8 Other specified diseases of biliary tract; I48.91 Unspecified atrial fibrillation; I10 Essential (primary) hypertension; I69.859 Hemiplegia and hemiparesis following other cerebrovascular disease affecting unspecified side; R53.1 Weakness; N32.81 Overactive bladder; Z86.19 Personal history of other infectious and parasitic diseases; Z90.49 Acquired absence of other specified parts of digestive tract; Z98.84 Bariatric surgery status; Z90.710 Acquired absence of both cervix and uterus; Z88.2 Allergy status to sulfonamides; Z91.040 Latex allergy status; Z66 Do not resuscitate; Z20.822 Contact with and (suspected) exposure to COVID-19
CPT/HCPCS: 96365; 96361; 93005; 87045; 85025 ×2; 80048; 36415; 86900; 83735 ×2; 86850; 89055; 82274; 84132; 85610; 86901; 80076; 87046; 83605; 84484; 83690; 80053; 83880; 74177; 71045; 96375; 99285; U0003; J3010; J3475; J0696; J7040; J2920; J3480; G0378 ×3; J0744